=== PATIENT | male | born 1995 | race Caucasian/White ===

== ENCOUNTER 2020-03-04 02:15 | Inpatient (IN) | payer OTHER, SELFPAY ==
[~2020-03-04] VITALS: Ht 177.8 cm; Wt 60.8 kg
[2020-03-04] MEDS ORDERED: ACETAMINOPHEN EXTRA STRENGTH 500 MG TAB PO ONE (02:20)
--- NOTE | 2020-03-04 02:20 | NUR ---
25M PRESENTS TO ED WITH C/O HIGH BLOOD SUGAR. STATES THEY WERE COMING STRAIGHT FROM [facility] AND HAD AN ALTERCATION WITH ONE OF THE NURSES THERE, SO THEY DISCHARGED HIM. PT PRESENTED UPON ARRIVAL VERY LETHARGIC AND WEAK. WHEELCHAIR ASSISTED PT. UPON ASSESSMENT, PT A/O X 4, GCS 15. REPORTS CHILLS AND FEVER. PERRLA. CBL SOUNDS. RR EVEN AND UNLABORED. +SOB BUT DENIES COUGH. ABDOMEN SOFT AND NON TENDER. BOWEL SOUNDS NORMOACTIVE ON ALL QUADRANTS. + N/V. DENIES DIARRHEA AND CONSTIPATION. PT IS AMBULATORY WITH ASSIST DUE TO LETHARGY. OBSERVED RASHES ON THE CHEST WALL. BLOOD SUGAR 411 ON TRIAGE. MACARIO MCCORMACK MADE AWARE OF PT STATUS. PT POSITIONED FOR COMFORT ON WITH HOB ELEVATED. PLACED FOR SAFETY WITH BED LOWEST AND LOCKED, RAILS X 2. PT IS PLACED ON CARDIAC, PULSE OXIMETRY, BP MONITORING. CAME IN WITH 100.3 DEGREE FEVER. PT REPORTS OUTSIDE TRAVEL TO [place] 2 WEEKS AGO AND STAYED FOR 1 WHOLE WEEK THERE. ALLERGIES TO VANCOMYCIN. PT TO BE PLACED TO BED 10 ISOLATION FOR + COVID SCREENING DUE TO FEVER AND OUTSIDE TRAVEL.
--- NOTE | 2020-03-04 02:20 | NUR ---
PT W/C TO BED 11.
[2020-03-04 02:22] VITALS: BP 137/67
--- NOTE | 2020-03-04 02:38 | NUR ---
MACARIO KWAW AT BEDSIDE.
[2020-03-04] MEDS ORDERED: NACL 0.9% 1,000 ML IV ONE ×2 (02:39→05:40)
[2020-03-04] MEDS ORDERED: KCL 20 MEQ/WATER INJ PREMIX 100 ML IV ONE (02:40)
[2020-03-04] MEDS ORDERED: INSULIN REGULAR, HUMAN 100 UNIT in NACL 0.9% 100 ML IV ONE ×2 (02:40)
[2020-03-04 02:56] LABS: BASOPHILS # (AUTO) 0.1 K/uL (0.00-0.22); BASOPHILS % (AUTO) 1.2 % (0.0-2.0); EOSINOPHILS % (AUTO) 0.1 % (0.0-4.0); HEMATOCRIT 35.5 % (36-52); HEMOGLOBIN 11.5 g/dL (12.0-18.0); LYMPHOCYTES # (AUTO) 0.2 K/uL (2.0-11.5); MEAN CORPUSCULAR HEMOGLOBIN 26 pg (27-31); MEAN CORPUSCULAR HGB CONC 33 g/dL (33-37); MEAN CORPUSCULAR VOLUME 80.2 fL (80-94); MONOCYTES # (AUTO) 0.4 K/uL (0.8-1.0); MONOCYTES % (AUTO) 3.7 % (1.7-9.3); NEUTROPHILS # (AUTO) 10.2 K/uL (1.8-7.7); NEUTROPHILS % (AUTO) 93.1 % (42.2-75.2); PLATELET COUNT (AUTO) 345 K/uL (140-450); RED BLOOD CELL COUNT(AUTO) 4.43 MIL/uL (4.20-6.10); RED CELL DISTRIBUTION WIDTH 14.7 % (11.6-13.7)
--- NOTE | 2020-03-04 03:10 | NUR ---
PT REPORTS OF NAUSEA AND VOMITING. HAD X 1 VOMITING EPISODE. MACARIO MCCORMACK MADE AWARE. ADVISED TO MEDICATE WITH ZOFRAN.
[2020-03-04 03:13] LABS: ALBUMIN 3.2 g/dL (3.4-5.0); ANION GAP 32.3 (8-16); ASPARTATE AMINOTRANSFERASE 17 U/L (15-37); CHLORIDE 95 mmol/L (98-107); CREATININE 1.6 mg/dL (0.6-1.3); GFR ARICAN-AMERICAN 68 mL/min (>90); POTASSIUM 4.3 mmol/L (3.5-5.1); SODIUM SERUM 132 mmol/L (136-145); TOTAL BILIRUBIN 0.5 mg/dL (0.0-1.0); UREA NITROGEN, BLOOD 17 mg/dL (7-18)
[2020-03-04] MEDS ORDERED: ONDANSETRON 4 MG/2 ML VIAL IVP ONE (03:15)
[2020-03-04 03:17] LABS: GLUCOSE 461 mg/dL (74-106)
[2020-03-04 03:18] LABS: ACETONE, SERUM MODERATE (NEGATIVE)
[2020-03-04 04:00] LABS: LYMPHOCYTES % (AUTO) 1.9 % (20.5-51.1)
[2020-03-04] MEDS ORDERED: INSU100S22 SUBQ (04:50)
[2020-03-04] MEDS ORDERED: FLUC100T PO (04:50)
[2020-03-04] MEDS ORDERED: HUM SUBQ (04:50)
[2020-03-04] MEDS ORDERED: INSULIN REGULAR, HUMAN 100 UNIT in NACL 0.9% 100 ML IV SCH ×2 (05:35)
[2020-03-04] MEDS ORDERED: ONDANSETRON 4 MG/2 ML VIAL IVP PRN (05:35)
[2020-03-04] MEDS ORDERED: DEXTROSE 50% 50 ML SYR IVP PRN ×2 (05:35)
[2020-03-04] MEDS ORDERED: BLOOD GLUCOSE MONITORING 1 DEV DEV FS SCH (05:35)
[2020-03-04] MEDS ORDERED: ACETAMINOPHEN 325 MG TAB PO PRN (05:35)
[2020-03-04] MEDS ORDERED: LORazepam 2 MG/ML VIAL IVP PRN (05:35)
[2020-03-04] MEDS: BLOOD GLUCOSE MONITORING 1 DEV DEV FS SCH ×18 (05:35→23:35)
[2020-03-04] MEDS: INSULIN REGULAR, HUMAN 100 UNIT in NACL 0.9% 100 ML IV SCH ×12 (06:00→19:45)
--- NOTE | 2020-03-04 06:17 | NUR ---
COVID SWAB COLLECTED, AND TAKEN TO LAB
--- NOTE | 2020-03-04 06:20 | NUR ---
PT VOMITED AROUND 20MLS OF LIGHT BROWN VOMIT.
[2020-03-04 06:55] LABS: APPEARANCE,URINE CLEAR (CLEAR); BILIRUBIN,URINE NEGATIVE (NEGATIVE); BLOOD, URINE TRACE-L (NEGATIVE); COLOR,URINE YELLOW (YELLOW); LEUKOCYTE ESTERASE ,URINE TRACE (NEGATIVE); NITRITE, URINE NEGATIVE (NEGATIVE); PH,URINE 5.5 (5.0-9.0); UGLUCOSE 3+ (NEGATIVE)
--- NOTE | 2020-03-04 07:20 | NUR ---
REPORT RECEIVED FROM JUANIS. PT IS RESTING IN BED, AWAKENS TO VERBAL STIMULI. VISIBLE CHEST RISE AND FALL. BED IN LOWEST POSITION. X2 SIDE RAILS RAISED.
--- NOTE | 2020-03-04 07:40 | NUR ---
PT C/O OF 7/10 PAIN LOCATED AT HEAD/BACK AND STOMACH. DESCRIBES PAIN SHARP AND THROBBING
[2020-03-04] MEDS: MORPHINE SULFATE 4 MG/ML SYR IVP PRN ×2 (07:45→22:59)
--- NOTE | 2020-03-04 08:36 | NUR ---
BS: 329, INSULIN DRIP DECREASED, REFER TO IV SPREADSHEET
[2020-03-04 08:41] LABS: RBC,URINE NONE SEEN /HPF (0-5); WBC,URINE 20-60 /HPF (0-5)
--- NOTE | 2020-03-04 08:52 | NUR ---
PATIENT HAS BEEN SCREENED AND CATEGORIZED HIGH NUTRITION RISK. PATIENT WILL BE SEEN WITHIN 1-2 DAYS OF ADMISSION. 03/04/20-03/05/[address]
--- NOTE | 2020-03-04 09:40 | NUR ---
PT IS RESTING IN BED, NAUSEA IS RELIEVED, PAIN IS RATED 0/10. VSS. ALL NEEDS MET AT THIS TIME
--- NOTE | 2020-03-04 11:00 | NUR ---
PT IS RESTING IN BED, AROUSABLE TO VERBAL STIMULI. VSS. BED IN LOWEST POSITION. ALL NEEDS MET AT THIS TIME.
[2020-03-04] MEDS: DEXT 5% / NACL 0.45% 1,000 ML IV SCH ×2 (11:05→23:37)
--- NOTE | 2020-03-04 12:44 | NUR ---
Kiki ramos in [facility] - 03/04/20 at 1246 by SIOBHAN BS:
--- NOTE | 2020-03-04 12:46 | NUR ---
BS: 182, INSULIN DRIP REDUCED TO 1 UNIT
--- NOTE | 2020-03-04 13:21 | NUR ---
PT IS SITTING UP IN BED, RESP EVEN AND UNLABORED. VSS. PT STATES HE IS FEELING BETTER, NO PAIN AT THE MOMENT. BED IN LOWEST POSITION
--- NOTE | 2020-03-04 13:58 | NUR ---
BS: 196, NO CHANGES MADE TO DRIP AT THIS TIME
--- NOTE | 2020-03-04 14:29 | NUR ---
MD MCCOY REQUESTED TO INCREASE D5 NS0.45% TO 150ML/HR
--- NOTE | 2020-03-04 14:59 | NUR ---
BS: 216, INSULIN DRIP INCREASED TO 2 UNITS
--- NOTE | 2020-03-04 16:02 | NUR ---
BLOOD SUGAR INCREASED TO 222, D5 NS0.45% INFUSION STOPPED AND SWITCHED TO NS.
--- NOTE | 2020-03-04 16:13 | NUR ---
NS RUNNING AT 100ML/ HR
--- NOTE | 2020-03-04 17:16 | NUR ---
BS: 179, INSULIN RUNNING AT 1 UNIT, FLUIDS SWITCHED TO D5 0.45%NS RUNNING AT 150ML. NS FLUIDS DISCONTINUED
--- NOTE | 2020-03-04 18:29 | NUR ---
BS: 173, NO CHANGES MADE AT THIS TIME
--- NOTE | 2020-03-04 18:55 | NUR ---
PT TRANSFERRED FROM ED TO ICU BED 7; PLACED PT ON MONITOR. CHG WIPES DONE; GOWN CHANGED. PT AAOX4; DROWSY, ON INSULIN DRIP AND MAINTENANCE FLUID. 20 G IV TO R FA AND LFA. DENIES N/V/D. DENIES LIGHTHEADEDNESS. SKIN INTACT. BED LOCKED IN LOWEST POSITION. WILL UPDATE ONCOMING RN. WILL CONTINUE TO OBSERVE.
--- NOTE | 2020-03-04 18:59 | NUR ---
Patient will be admitted to care of [facility]. Admited to ICU . Will go to room 7. Belongings list completed. Report to CHE GAUTHIER.
--- NOTE | 2020-03-04 19:30 | NUR ---
ASSUMED CARE OF PT.INITIAL ASSESSMENT COMPLETED.PT AWAKE BUT DROWSY.ABLE TO FOLLOW COMMANDS.SR/ST NOTED ON MONITOR.ON ROOM AIR.NO SOB NOTED.WITH PERIPHERAL IV TO LT F/A G20 INFUSING ORDERED IVF AND RT F/A G20 INTACT INFUSING INSULIN DRIP PER PROTOCOL.NOTED RASHES ON PTS LEFT NECK AREA AND CHEST AREA.PT DID NOT ANSWER WHEN ASKED REGARDING THE RASHES.PT WITH HX OF N/V.DENIES AT THIS TIME.ALSO DENIES PAIN.NURSE UNABLE TO EXAMINE PERINEAL/BACK AREA, PT REFUSING.
[2020-03-04 20:00] VITALS: BP 121/77
--- NOTE | 2020-03-04 21:45 | NUR ---
PT VOIDED USING URINAL.500ML YELLOW URINE.
[2020-03-04 22:00] VITALS: BP 128/85
--- NOTE | 2020-03-04 22:30 | NUR ---
PM CARE REQUESTED BY PT.ORAL CARE DONE.PT STILL ON INSULIN DRIP PER PROTOCOL.TOLERATING ROOM AIR.NO SOB NOTED
--- NOTE | 2020-03-04 22:59 | NUR ---
PT C/O GENERALIZED PAIN 03/07; MORPHINE GIVEN ORDERED
[2020-03-05] VITALS (12 sets, daily range): BP systolic 107–130; BP diastolic 68–83
[2020-03-05] MEDS: BLOOD GLUCOSE MONITORING 1 DEV DEV FS SCH ×15 (00:35→20:47)
--- NOTE | 2020-03-05 01:03 | NUR ---
PT ASLEEP, EASILY AROUSABLE ; STILL ON INSULIN DRIP PER PROTOCOL.NO SOB NOTED.DENIES PAIN WHEN ASKED
[2020-03-05 01:36] LABS: ALBUMIN 2.8 g/dL (3.4-5.0); ANION GAP 15.5 (8-16); CARBON DIOXIDE 20.9 mmol/L (21-32); CREATININE 1.3 mg/dL (0.6-1.3); POTASSIUM 3.4 mmol/L (3.5-5.1); TOTAL BILIRUBIN 0.3 mg/dL (0.0-1.0)
--- NOTE | 2020-03-05 02:54 | NUR ---
PT AWAKE;WANTED TO DRINK WATER; REMINDED PT THAT HE IS NPO AT THIS TIME.NO C/O PAIN MADE
--- NOTE | 2020-03-05 05:35 | NUR ---
pt asleep; easily arousable.no sob noted.continued insulin drip.maintained npo as ordered
[2020-03-05] MEDS: DEXT 5% / NACL 0.45% 1,000 ML IV SCH ×2 (06:50→16:50)
--- NOTE | 2020-03-05 08:00 | NUR ---
PT IN BED SKIN IS VERY WARM TO TOUCH TEMP 102 TYLENOL 65O MG PO GIVEN ,
--- NOTE | 2020-03-05 08:30 | NUR ---
DR. CAVAZOS INFORM ABOUT THE FEVER ORDER BLOOD C/S X2 UA AND CXR.
[2020-03-05 09:29] LABS: BASOPHILS % (AUTO) 0.7 % (0.0-2.0); EOSINOPHILS % (AUTO) 0.6 % (0.0-4.0); HEMATOCRIT 34.4 % (36-52); HEMOGLOBIN 11.6 g/dL (12.0-18.0); LYMPHOCYTES # (AUTO) 0.7 K/uL (2.0-11.5); LYMPHOCYTES % (AUTO) 10.3 % (20.5-51.1); MEAN CORPUSCULAR HEMOGLOBIN 26 pg (27-31); MEAN CORPUSCULAR HGB CONC 34 g/dL (33-37); MEAN CORPUSCULAR VOLUME 78.1 fL (80-94); MONOCYTES # (AUTO) 0.7 K/uL (0.8-1.0); MONOCYTES % (AUTO) 10.9 % (1.7-9.3); NEUTROPHILS # (AUTO) 4.9 K/uL (1.8-7.7); NEUTROPHILS % (AUTO) 77.5 % (42.2-75.2); PLATELET COUNT (AUTO) 297 K/uL (140-450); RED CELL DISTRIBUTION WIDTH 14.5 % (11.6-13.7); WHITE BLOOD COUNT (AUTO) 6.3 K/uL (4.8-10.8)
--- NOTE | 2020-03-05 11:35 | NUR ---
RE CHECK HGT 319 - NO COMPLAIN MADE . WILL INFORM ABOUT LATEST HGT .
--- NOTE | 2020-03-05 11:38 | NUR ---
DISCHARGE PLANNING: THIS IS A 25 Y/O MALE PATIENT FROM HOME, WHO CAME IN DUE TO GENERALIZED WEAKNESS. PAST MEDICAL HISTORY INCLUDE DIABETES. INITIAL DIAGNOSIS OF DKA. CURRENT LABS INCLUDE WBC 6.3, H/H 11.6/34.4, NA/K 135/3.4, BUN/CREA 11/1.3, GLU 229 AND ANION GAP 15.5. ON INSULIN DRIP. ON CEFTRIAXONE AND AZITHROMYCIN. NO CONSULTS AT THIS TIME. DC PLAN BACK TO HOME ONCE STABLE. Addendum: 03/06/20 at 1458 by Jackelyn Dewitt CM SCHEDULED PATIENT A POST DISCHARGE FOLLOW UP APPOINTMENT WITH PCP. APPOINTMENT ON Tuesday AT 8:30AM. [id number] [facility] [employer] [facility] [address] [place] [address] . APPOINTMENT REMINDER WILL BE PLACED IN PATIENTS CHART AND WILL NOTIFY ABRAHAN.
[2020-03-05 11:39] LABS: ALBUMIN 2.8 g/dL (3.4-5.0); ANION GAP 15.6 (8-16); CARBON DIOXIDE 21.3 mmol/L (21-32); CREATININE 1.3 mg/dL (0.6-1.3); TOTAL BILIRUBIN 0.3 mg/dL (0.0-1.0)
[2020-03-05 11:42] LABS: POTASSIUM 2.9 mmol/L (3.5-5.1)
[2020-03-05] MEDS: POTASSIUM CHLORIDE 10 MEQ TABER PO SCH ×2 (12:00→17:13)
--- NOTE | 2020-03-05 12:00 | NUR ---
KCL [address] PO [address] COLE ORDERED.
[2020-03-05] MEDS: AZITHROMYCIN 500 MG in DEXTROSE 5% 250 ML IV SCH (13:00)
--- NOTE | 2020-03-05 13:43 | NUR ---
TRANSFER TO TELE BY MARAH .PT. IS IN STABLE CONDITION DENIED PAIN.
--- NOTE | 2020-03-05 13:43 | NUR ---
03/05/20 RD INITIAL ASSESSMENT COMPLETED PLEASE REFER TO NUTRITION ASSESSMENT UNDER CARE ACTIVITY FOR ESTIMATED NUTRITIONAL NEEDS. 1. CONTINUE NPO MEDICALLY APPROPRIATE 2. CONSIDER ADVANCING DIET TO CCHO 60 GM WHEN MEDICALLY CLEARED 3. RD WILL PROVIDE NUTRITION EDUCATION EDUCATION FOR DIABETES ON FOLLOW UP VISIT 4. RD TO FOLLOW-UP 2-3 DAYS, HIGH RISK MYRNA MILTON, RD
--- NOTE | 2020-03-05 13:45 | NUR ---
DR. COLE IN THE UNIT. DISCUSSED PLAN OF CARE. NOTIFIED OF CLOSED ANION GAP OF 15.5 AND 15.6 RESPECTIVELY. LATEST BS= 174. DR COLE ORDERED TO DC INSULIN DRIP, GIVE LANTUS 25 MG SQ X 1 DOSE AND DOWNGRADE PATIENT TO TELE. ALL ORDERS NOTED AND CARRIED OUT. PATIENT NOTIFIED OF PLAN OF CARE AND VERBALIZED UNDERSTANDING.
[2020-03-05 13:55] LABS: ALBUMIN 2.5 g/dL (3.4-5.0); ANION GAP 12.2 (8-16); CARBON DIOXIDE 23.6 mmol/L (21-32); CREATININE 1.1 mg/dL (0.6-1.3); TOTAL BILIRUBIN 0.2 mg/dL (0.0-1.0)
[2020-03-05] MEDS ORDERED: INSULIN LANTUS 100 UNITS/ML 10 ML VIAL SUBQ SCH (14:00)
--- NOTE | 2020-03-05 14:00 | NUR ---
RECEIVED REPORT FROM ELIZABETH, PATIENT IS ALERT ORIENTED AMBULATORY IN NO ACUTE DISTRESS. PATIENT IS ON RA O2 SAT 95%. TELE MONITOR IN PLACE SR HR=99. ALL BELONGINGS AND CELLPHONE WITH PATIENT. ZITHROMAX ON GOING VIA RFA IV SITE NO SIGN OF INFILTRATION NOTED. PATIENT IS ABLE TO AMBULATE INDEPENDENTLY WITHOUT DIFFICULTY. RE-ORIENTED TO THE ROOM, CALL LIGHT, TV, BATHROOM. WILL ENDORSE TO RECEIVING NURSE
[2020-03-05 14:03] LABS: POTASSIUM 2.8 mmol/L (3.5-5.1)
--- NOTE | 2020-03-05 14:45 | NUR ---
ENDORSED PATIENT TO JOSH RN FOR CONTINUITY OF CARE. ALL QUESTIONS ANSWERED.
--- NOTE | 2020-03-05 14:45 | NUR ---
RECEIVED REPORT FROM TRACTOR ENGINE MECHANICMARAH. PT IS EATING LUNCH IN BED SITTING UP. NO SIGNS OF DISTRESS. VS STABLE. PT HAS A IV IN THE RT FOREARM 20G. PT IS ON A DIABETIC DIET. A&OX4. SKIN IS INTACT. PT IS ON DROPLET PRECAUTIONS.
--- NOTE | 2020-03-05 14:45 | NUR ---
RECEIVED PT FROM ABRAHAN RANDLE, PT IS AWAKE AND WITH AN IV LINE ON THE RT FA G.20 WITH AZITHROMYCIN INFUSING IVPB, ON ROOM AIR, PT DENIES PAIN AND NO SIGN OF DISTRESS NOTED. WILL CONTINUE TO MONITOR PT.
[2020-03-05 16:59] LABS: ALBUMIN 2.5 g/dL (3.4-5.0); ANION GAP 14.9 (8-16); CARBON DIOXIDE 21.6 mmol/L (21-32); CREATININE 1.1 mg/dL (0.6-1.3); POTASSIUM 3.5 mmol/L (3.5-5.1); TOTAL BILIRUBIN 0.3 mg/dL (0.0-1.0)
--- NOTE | 2020-03-05 17:13 | NUR ---
PT WAS GIVEN THE SCHEDULED [id number] K-DUR NOW. TOLERATED AND WILL MONITOR PT.
[2020-03-05] MEDS ORDERED: DEXTROSE 50% 50 ML SYR IVP PRN (17:15)
--- NOTE | 2020-03-05 17:16 | NUR ---
DR. MCCOY CALLED BACK AND WAS ASKED IF PT WILL STILL BE PUT ON EVERY HOUR BLOOD GLUCOSE CHECKING AND MD MADE A TELEPHONE ORDERS TO DISCONTINUE QH BLOOD GLUCOSE CHECK AND INSTEAD ORDERED FOR A LISPRO SLIDING SCALE AND A HGB A1C FOR TOMORROW'S AM LABS, TELEPHONE ORDERS READ BACK AND VERIFIED AND WILL CARRY OUT.
--- NOTE | 2020-03-05 17:30 | NUR ---
PT AMBULATED TO RESTROOM. PT VOIDED. PT RETURNED TO BED. PT IS RESTING IN BED, AWAKE. NO SIGNS OF DISTRESS.
--- NOTE | 2020-03-05 19:31 | NUR ---
TRANSFER OF CARE TO PM RN, MYA. PT IS RESTING IN BED EYES CLOSED. NO SIGNS OF DISTRESS. PT IS RUNNING D5 NS AT 30ML/HR. SKIN IS INTACT. LT IV IS SENSITIVE TO TOUCH, AVOID PASSING MEDICATIONS. MRSA TEST IS PENDING. RECOMMENDATION, CONTINUE MONITORING BLOOD SUGAR.
--- NOTE | 2020-03-05 19:31 | NUR ---
RECEIVED PT AAOX4 , NID - O2 SAT WNL - RA . DENIES ANY PAIN . ON TELE MONITOR . IV SITES INTACT AND PATENT . SAFETY MEASURES IN PLACE . CALL LIGHT WITHIN REACH. PLAN OF CARE DISCUSSED AND VERBALIZE UNDERSTANDING. PER AM SHIFT NURSE THE DOCTOR DISCONTINUED THE INSULIN DRIP. UPON I RECEIVING THE REPORT I FOUND OUT THE PRSENG ON GOING IVF FLUID IS WITH D5 . I ASKED AM NURSE IF THE DOCTOR AWARE THAT THE PESENT ONGOING IVF IS STILL W/ D5 SINCE THE PT'S INSULIN DRIP IS ALREADY DISCONTINUED AND AM NURSE SAID YES THE DOCTOR AWARED ABOUT IT . WILL CONT. TO MONITOR.
--- NOTE | 2020-03-05 19:35 | NUR ---
REFUSE BLOOD DRAW FOR RPT. BMP - WILL INFORM DOCTOR PATIENT RELATIONS MANAGER .
--- NOTE | 2020-03-05 20:00 | NUR ---
MADE ROUNDS . RE CHECK HGT - 406 . STOPPED THE PRESENT IVF D5 0.45 NSS. ACCORDING TO INSULIN SCALE IF THE HGT IS 401 AND ABOVE - CALL MD. WILL GIVE FRESH DRINKING WATER. WILL MONITOR CLOSELY. PT. VOIDED FREELY - 300ML - BP WNL . WILL SEND URINE TO LAB FOR URINE PROFILE ORDERED. WILL PAGE ELECTRICAL AND RADIO AIRCRAFT MECHANIC ABOUT THE [id number] .O2 SAT WNL . Addendum: 03/06/20 at 0756 by Rosie Banerjee RN HOOK NSS RUN FOR 10CC /HR - WILL REFER TO DOCTOR ELECTRICAL AND RADIO AIRCRAFT MECHANIC FOR FURTHER ORDERS .- WILL INFORM CHARGE NURSE .
--- NOTE | 2020-03-05 20:30 | NUR ---
PAGE DR. QUIROZ - ABOUT HGT 406
--- NOTE | 2020-03-05 21:00 | NUR ---
PER SHOCK ABSORPTION FLOOR LAYER - SAID PT REQUESTED HE DOES NOT WANT TO HOOK O2 SAT MONITORING BUT AGREE TO CHECK THE O2 SAT FROM TIME TO TIME . I VERIFIED THIS TO PT AND I CONFIRMED IT . I EXPLAIN THE THE IMPORTANCE OF O2 SAT MONITORING , BUT PT. STILL REFUSE FOR O2 SAT MONITORING , HE SAID HOOK O2 SAT MONITORING LATER HE WANTS TO SLEEP AND REST FOR AWHILE . PT'S NO S/SX OF RESP. DISTRESS NOTED AT THIS TIME . RA.
--- NOTE | 2020-03-05 21:47 | NUR ---
INFORMED CHARGE NURSE ABOUT THE INCIDENT HAPPENNED / CONVERSATION BET. AND DR. COATS . SHE SAID SHE WILL RE PAGE DR. COATS.
--- NOTE | 2020-03-05 22:08 | NUR ---
MY CHARGE NURSE TELLING ME - SHE RE PAGED DR. COATS - BUT NO RESPONSE - WILL REPORT TO NURSE COMPOSITION FLOOR SETTER ABOUT IT .
--- NOTE | 2020-03-05 22:10 | NUR ---
INFORM DIRECTOR STAGE ABOUT THE INCIDENT HAPPENNED AND UNTIL NOW NO REPONSE FROM DR. COATS - SHE SAID CALL THE PRIMARY DOCTOR .
--- NOTE | 2020-03-05 22:13 | NUR ---
NO RTESPONSE FROM DR. COATS - GIVE KASSI 10 'u " PER CHARGE NURSE. WILL RE CHECK HGT AFTER AN HOUR - FOR CLOSELY WATCH . AT THIS TIME PT. IS RESTING ON BED COMFORTABLY NO COMPLAIN MADE . CALL LIGHT WITHIN REACH . Addendum: 03/06/20 at 0059 by Rosie Banerjee RN MARIAA VERIFIED AND CO SIGNED WITH ARMANI , BUT I FOUND OUT I DID NOT SAVE IT TO COMPUTER .
--- NOTE | 2020-03-05 22:45 | NUR ---
DR. COATS CALL BACK - I'M GIVING HIM SHORT BACKGROUND ABOUT THE PT. - I INFORM HIM THE PT'S DIAGNOSIS IS DIABETIC KETOACIDOSIS AND THE LATEST HGT IS 406 . WHILE GIVING REPORT TO HIM DR. ESTRADA BECOME MAD AND HE SAID HOW COME THE PT IS DIABETIC KETOACIDOSIS AND HAS NO INSULIN DRIP . I TRYING TO CONTINUE MY REPORT THAT THE PT TRANSFERRED FROM ICU ,HAD INSULIN DRIP BUT IT WAS DISCONTINUED ORDERED BY THE THE DOCTOR , BUT I DID NOT CONTINUE MY EXPLANATION BECAUSE HE CUT OFF OUR CONVERSATION. - WILL INFORM CHARGE NURSE . Addendum: 03/06/20 at 0039 by Rosie Banerjee RN THE TIME IN THE ABOVE NURSE'S NOTE IS TYPOGRAPHICALLY ERROR - REY Addendum: 03/06/20 at 0042 by Rosie Banerjee RN THE TIME OF THE ABOVE NURSE'S NOTE IS TYPOGRAPHICALLY ERROR , INSTEAD OF 2145- LAWRENCELR
[2020-03-06 01:18] LABS: ALBUMIN 2.6 g/dL (3.4-5.0); ANION GAP 12.8 (8-16); CARBON DIOXIDE 23.7 mmol/L (21-32); CREATININE 1.2 mg/dL (0.6-1.3); POTASSIUM 3.5 mmol/L (3.5-5.1); TOTAL BILIRUBIN 0.2 mg/dL (0.0-1.0)
[2020-03-06 02:50] LABS: APPEARANCE,URINE CLEAR (CLEAR); BILIRUBIN,URINE NEGATIVE (NEGATIVE); BLOOD, URINE TRACE-I (NEGATIVE); COLOR,URINE YELLOW (YELLOW); LEUKOCYTE ESTERASE ,URINE TRACE (NEGATIVE); NITRITE, URINE NEGATIVE (NEGATIVE); UGLUCOSE 3+ (NEGATIVE)
[2020-03-06 03:19] LABS: WBC,URINE 20-60 /HPF (0-5)
--- NOTE | 2020-03-06 04:30 | NUR ---
RE CHECK HGT 132 . NO COMPLAIN MADE - WILL CONT. TO MONITOR.
--- NOTE | 2020-03-06 06:00 | NUR ---
MADE ROUNDS , PT WATCHING TV , NO COMPLAIN MADE , DENIES ANY PAIN , O2 SAT WNL, BP 122/81 - NO MASSIVE U.O NOTED FOR THE WHOLE NIGHT . WILL CONT. TO MONITOR.
[2020-03-06 06:44] LABS: BASOPHILS % (AUTO) 0.7 % (0.0-2.0); HEMATOCRIT 32.7 % (36-52); HEMOGLOBIN 10.9 g/dL (12.0-18.0); LYMPHOCYTES # (AUTO) 0.6 K/uL (2.0-11.5); LYMPHOCYTES % (AUTO) 12.8 % (20.5-51.1); MEAN CORPUSCULAR HEMOGLOBIN 26 pg (27-31); MEAN CORPUSCULAR HGB CONC 33 g/dL (33-37); MEAN CORPUSCULAR VOLUME 77.7 fL (80-94); MONOCYTES # (AUTO) 0.5 K/uL (0.8-1.0); MONOCYTES % (AUTO) 10.9 % (1.7-9.3); NEUTROPHILS # (AUTO) 3.6 K/uL (1.8-7.7); NEUTROPHILS % (AUTO) 74.6 % (42.2-75.2); PLATELET COUNT (AUTO) 272 K/uL (140-450); RED BLOOD CELL COUNT(AUTO) 4.21 MIL/uL (4.20-6.10); RED CELL DISTRIBUTION WIDTH 14.4 % (11.6-13.7); WHITE BLOOD COUNT (AUTO) 4.9 K/uL (4.8-10.8)
--- NOTE | 2020-03-06 07:15 | NUR ---
ENDORSED TO AM SHIFT - I TOLD HER WHAT HAPPENNED ABOUT THE CONVERSATION BET . ME AND DR. ESTRADA . ENDORSE TO HER TO CALL PRIMARY DOCTOR FOR FURTHER ORDERS . PT - STABLE .
--- NOTE | 2020-03-06 07:15 | NUR ---
REPORT GIVEN BY MYA NIGHT NURSE. PATIENT IN STABLE CONDITION. PER NIGHT NURSE PATIENT HAD INCREASED BG, LAST BG 132, SHE WAS UNABLE TO REACH DOCTOR FOR FURTHER ORDERS. WILL FOLLOW UP. PATIENT IS AOX4. NO S/S OF DISTRESS NOTED. CALL LIGHT WITHIN REACH. IV INTACT AND PATENT TO RIGHT FOREARM. PLANS OF CARE DISCUSSED.
[2020-03-06 07:25] LABS: ALBUMIN 2.5 g/dL (3.4-5.0); ANION GAP 12.8 (8-16); CARBON DIOXIDE 22.5 mmol/L (21-32); CREATININE 1.1 mg/dL (0.6-1.3); POTASSIUM 3.3 mmol/L (3.5-5.1); TOTAL BILIRUBIN 0.3 mg/dL (0.0-1.0)
[2020-03-06 08:00] VITALS: BP 128/76
[2020-03-06] MEDS: BLOOD GLUCOSE MONITORING 1 DEV DEV FS SCH ×3 (08:05→16:46)
--- NOTE | 2020-03-06 08:10 | NUR ---
DR. SHAIKH MELO FOR ORDERS.
[2020-03-06] MEDS: DEXT 5% / NACL 0.45% 1,000 ML IV SCH (08:22)
--- NOTE | 2020-03-06 08:29 | NUR ---
DR. CAVAZOS CALLED. OK TO DC D5 NS, KEEP PATIENT ON SALINE LOCK. PER HE WILL COME IN TO SEE PATIENT TODAY.
--- NOTE | 2020-03-06 08:45 | NUR ---
PATIENT REFUSED TO PLACE TELE MONITOR ON. EDUCATED PATIENT ABOUT THE BENEFITS OF TELE MONITOR BEING IN PLACE. PATIENT STILL REFUSED.
--- NOTE | 2020-03-06 10:20 | NUR ---
PATIENT STATED LEFT FOREARM IV IS "HURTING" AND IS "BOTHERING HIM." NO EDEMA OR INFILTRATE NOTED BUT PATIENT OBSERVED TRYING TO REMOVE IV HIMSELF. PATIENT EDUCATED. LEFT FOREARM IV REMOVED, CANNULA INTACT. BLEEDING CONTROLLED. Addendum: 03/06/20 at 1040 by Vale Wong RN PATIENT EDUCATED ABOUT TELE MONITOR, PATIENT REFUSE TO KEEP IN PLACE.
[2020-03-06 11:18] LABS: ALBUMIN 2.6 g/dL (3.4-5.0); ANION GAP 13.4 (8-16); CARBON DIOXIDE 24.1 mmol/L (21-32); CREATININE 1.1 mg/dL (0.6-1.3); POTASSIUM 3.5 mmol/L (3.5-5.1); TOTAL BILIRUBIN 0.3 mg/dL (0.0-1.0)
--- NOTE | 2020-03-06 11:29 | NUR ---
DR. CAVAZOS MADE AWARE OF PATIENT'S BG 453. RECEIVED ORDER TO GIVE LANTUS 25 UNITS NOW THEN DAILY AND HUMALOG 10 UNITS. TO SEE PATIENT.
[2020-03-06] MEDS: INSULIN LISPRO SLIDING SCALE 100 UNITS/ML VIAL SUBQ PRN ×2 (11:44→16:49)
[2020-03-06 12:00] VITALS: BP 118/64
[2020-03-06] MEDS ORDERED: INSULIN LANTUS 100 UNITS/ML 10 ML VIAL SUBQ SCH (12:00)
--- NOTE | 2020-03-06 12:30 | NUR ---
PATIENT EATING LUNCH. NO S/S OF DISTRESS NOTED. CALL LIGHT WITHIN REACH.
[2020-03-06] MEDS: AZITHROMYCIN 500 MG in DEXTROSE 5% 250 ML IV SCH (13:00)
--- NOTE | 2020-03-06 13:45 | NUR ---
RECHECKED BLOOD SUGAR, 383.
[2020-03-06 14:29] LABS: ALBUMIN 2.5 g/dL (3.4-5.0); ANION GAP 14.6 (8-16); CARBON DIOXIDE 23.6 mmol/L (21-32); CREATININE 1.2 mg/dL (0.6-1.3); POTASSIUM 3.2 mmol/L (3.5-5.1); TOTAL BILIRUBIN 0.2 mg/dL (0.0-1.0)
--- NOTE | 2020-03-06 14:55 | NUR ---
DR. CAVAZOS IN UNIT AND AWARE OF CURRENT BMP RESULTS. PER MD HE WILL GET DISCHARGED TODAY.
[2020-03-06 16:00] VITALS: BP 117/77
--- NOTE | 2020-03-06 17:00 | NUR ---
PATIENT IN STABLE CONDITION. DISCHARGE INSTRUCTIONS PROVIDED AND ALL BELONGINGS SIGNED FOR. PATIENT WILL DISCHARGE TO HOME. PATIENT STATED THAT HIS SISTER WILL PICK HIM UP AROUND 6PM.
--- NOTE | 2020-03-06 18:20 | NUR ---
IV REMOVED, CANNULA INTACT. ID BAND REMOVED. PATIENT REMAINS IN STABLE CONDITION. PT AWAITING FOR HIS SISTER FOR BEHAVIORAL SERVICES TECH.
--- NOTE | 2020-03-06 19:36 | NUR ---
PATIENT STATED THAT [facility] WILL PICK HIM UP INSTEAD OF HIS SISTER. ELAINE CHARGE NURSE MADE AWARE.
--- NOTE | 2020-03-06 19:40 | NUR ---
PATIENT BROUGHT VIA W/C TO THE LOBBY TO BE PICKED UP BY [facility]. ALL BELONGINGS GIVEN.
[2020-03-07] MEDS ORDERED: INSULIN LANTUS 100 UNITS/ML 10 ML VIAL SUBQ SCH (09:00)
== END 2020-03-06 19:40 | disposition home or self-care (01) | DRG 420 ==
LOC: MED 02:15 → MTU 05:38 → EEVIPCON 05:38 → MIC 19:29 → MMU 03-05 13:45
PROVIDERS: ADMIT Hospitalist; ATTEND Hospitalist
DX: E10.10 Type 1 diabetes mellitus with ketoacidosis without coma (principal); Z79.4 Long term (current) use of insulin; Z91.19 Patient's noncompliance with other medical treatment and regimen; Z20.828 Contact with and (suspected) exposure to other viral communicable diseases; Z88.1 Allergy status to other antibiotic agents; F32.9 Major depressive disorder, single episode, unspecified
CPT/HCPCS: 36415; 36600; 71045; 80053; 81001; 82009; 82803; 82948; 83036; 85025; 87040; 87081; 87086; 93005; 96365; 96375; 96376; 99291; J0456; J0696; J1815; J2270; J2405; J3480; J7060; Q0092; U0003-CS

== ENCOUNTER 2021-03-03 09:59 | Inpatient (IN) | payer OTHER, SELFPAY ==
[2021-03-03] VITALS (11 sets, daily range): BP systolic 92–126; BP diastolic 45–88
[~2021-03-03] VITALS: Ht 160 cm; Wt 52.2 kg
[~2021-03-03 09:59] MED LIST: FLUC100T PO; HUM SUBQ; INSU100S22 SUBQ
--- NOTE | 2021-03-03 09:59 | NUR ---
Patient wheelchair assisted to bed 9.
--- NOTE | 2021-03-03 10:00 | NUR ---
26 y/o M BIB brother, wheelchair assisted with c/c generalized weakness since this morning. Per brother, patient presented altered this morning at 10AM; stating "he may be in DKA." AccuChek performed reading "HI." GCS 9; Kussmaul respirations @ RR 26; HR 119; blood pressure 92/45; SpO2 98% on room air. Skin cool/dry. Pt placed onto lunchroom monitor. Bed locked in lowest position, side rails x 1, call light in reach. medhx: DM, one lung allergies: vancomycin
--- NOTE | 2021-03-03 10:00 | NUR ---
Dr. Tomas at bedside evaluating patient.
[2021-03-03] MEDS ORDERED: NACL 0.9% 1,000 ML IV ONE ×3 (10:05→13:20)
--- NOTE | 2021-03-03 10:10 | NUR ---
EMT at bedside.
--- NOTE | 2021-03-03 10:22 | NUR ---
RAD AT BEDSIDE
--- NOTE | 2021-03-03 10:40 | NUR ---
# 15 FR Lau catheter utilizing sterile technique. Immediate return of 325 ml clear/straw urine noted. Urine sample collected and sent to lab. Pt tolerated procedure well.
--- NOTE | 2021-03-03 10:41 | NUR ---
SECURITY RESEARCHER AT BEDSIDE FOR LAB DRAW
--- NOTE | 2021-03-03 10:45 | NUR ---
Urine sample collected via straight catheter, handed to CPT Chilo at ER bedside.
[2021-03-03] MEDS ORDERED: SODIUM BICARBONATE 8.4% PFS 50 MEQ/50 ML SYR IVP ONE ×2 (10:48→10:50)
--- NOTE | 2021-03-03 10:50 | NUR ---
Sodium Bicarbonate IVP 50mEq to be given per Dr. Tomas. Orders placed and medication administered.
[2021-03-03 11:05] LABS: HEMOGLOBIN 11.6 g/dL (12.0-18.0)
[2021-03-03 11:05] LABS: APPEARANCE,URINE CLEAR (CLEAR); BILIRUBIN,URINE NEGATIVE (NEGATIVE); BLOOD, URINE 1+ (NEGATIVE); COLOR,URINE YELLOW (YELLOW); LEUKOCYTE ESTERASE ,URINE NEGATIVE (NEGATIVE); NITRITE, URINE NEGATIVE (NEGATIVE); UGLUCOSE 3+ (NEGATIVE)
[2021-03-03 11:12] LABS: HEMATOCRIT 40.2 % (36-52); MEAN CORPUSCULAR HEMOGLOBIN 29 pg (27-31); MEAN CORPUSCULAR HGB CONC 29 g/dL (33-37); PLATELET COUNT (AUTO) 458 K/uL (140-450); RED BLOOD CELL COUNT(AUTO) 4.01 MIL/uL (4.20-6.10); RED CELL DISTRIBUTION WIDTH 14.6 % (11.6-13.7)
[2021-03-03 11:19] LABS: RBC,URINE NONE SEEN /HPF (0-5)
[2021-03-03 11:19] LABS: WHITE BLOOD COUNT (AUTO) 34.1 K/uL (4.8-10.8)
[2021-03-03 11:20] LABS: LYMPHOCYTES % (MANUAL) 11 % (20-46); MONOCYTES % (MANUAL) 4 % (5-12)
[2021-03-03 11:20] LABS: URINE AMORPHOUS URATE 1+ /HPF (None Seen)
[2021-03-03] MEDS ORDERED: PIPERACILLIN/TAZOBACTAM 3.375 GM in DEXTROSE 5% 50 ML IV ONE (11:20)
[2021-03-03 11:25] LABS: BARBITURATE, URINE NEGATIVE ng/ml (NEG <=200); BENZODIAZEPINE, URINE NEGATIVE ng/mL (NEG <=200); CANNABINOID, URINE NEGATIVE ng/mL (NEG <=50); COCAINE, URINE NEGATIVE ng/mL (NEG <=300); OPIATE, URINE NEGATIVE ng/mL (NEG <=2000); PHENCYCLIDINE SCREEN,URINE NEGATIVE ng/mL (NEG <=25)
[2021-03-03] MEDS ORDERED: PIPERACILLIN/TAZOBACTAM 3.375 GM VIAL IV ONE (11:25)
--- NOTE | 2021-03-03 11:30 | NUR ---
Patient resting on right side side in semi-fowlers position; responds with incomprehensible sounds to painful stimuli. Kussmaul respirations @ RR 26 deep/rapid. monitor tech remains in place. Bed locked in lowest position, side rails x 2.
--- NOTE | 2021-03-03 11:35 | NUR ---
Alma colunga swab collected, handed to CPT. Chilo
[2021-03-03 11:42] LABS: ALBUMIN 3.7 g/dL (3.4-5.0); CREATININE 2.5 mg/dL (0.6-1.3); TOTAL BILIRUBIN 0.5 mg/dL (0.0-1.0)
[2021-03-03 11:46] LABS: POTASSIUM 6.7 mmol/L (3.5-5.1)
[2021-03-03 11:47] LABS: CARBON DIOXIDE 6.7 mmol/L (21-32)
[2021-03-03] MEDS ORDERED: INSULIN REGULAR, HUMAN 100 UNIT in NACL 0.9% 100 ML IV ONE ×2 (11:50)
[2021-03-03] MEDS ORDERED: INSULIN REGULAR, HUMAN 100 UNIT/ML VIAL IVP ONE (11:50)
--- NOTE | 2021-03-03 12:05 | NUR ---
AccuChek and lab blood glucose too high to read; "999" numeric inputed for Humulin R IVP. Dr. Tomas made aware; orders to be administered.
[2021-03-03] MEDS ORDERED: INSULIN REGULAR, HUMAN 100 UNIT in NACL 0.9% 100 ML IV SCH ×4 (12:08→15:00)
--- NOTE | 2021-03-03 12:09 | NUR ---
Patient sitting on left side in semi-fowlers position; alert to voice commands at this time. Kussmaul respirations @ RR 26 deep/rapid. nuclear monitoring technician remains in place. Bed locked in lowest position, side rails x 2.
--- NOTE | 2021-03-03 12:20 | NUR ---
Pharmacy contacted to prepare Insulin R drip; no ETA provided.
[2021-03-03] MEDS ORDERED: MAG SULF 2000 MG/WATER PREMIX 50 ML IV PRN (12:35)
[2021-03-03] MEDS ORDERED: ACETAMINOPHEN 325 MG TAB PO PRN (12:35)
[2021-03-03] MEDS ORDERED: DOCUSATE SODIUM 100 MG GELCAP PO PRN (12:35)
[2021-03-03] MEDS ORDERED: INSULIN REGULAR, HUMAN 100 UNIT/ML VIAL SUBQ SCH (12:45)
[2021-03-03] MEDS: BLOOD GLUCOSE MONITORING 1 DEV DEV FS SCH ×12 (12:45→23:43)
[2021-03-03] MEDS ORDERED: CALCIUM GLUCONATE 10% 1,000 MG in NACL 0.9% 50 ML IV SCH (13:00)
--- NOTE | 2021-03-03 13:02 | NUR ---
DR OVIEDO AT BEDSIDE EVAUATING PT
--- NOTE | 2021-03-03 13:16 | NUR ---
REPORT GIVEN TO LATRICIA RN FOR ADMIT TO ICU 106. ETA 15 MINS
[2021-03-03 13:25] LABS: MAGNESIUM 2.8 mg/dL (1.8-2.4); THYROID STIMULATING HORMONE 0.99 uIU/mL (0.34-3.74)
--- NOTE | 2021-03-03 13:30 | NUR ---
Patient will be admitted to care of DR MÓNICA OVIEDO. Admited to ICU. Will go to room 106A. Belongings list completed. Report to LATRICIA GAUTHIER.
[2021-03-03 13:37] LABS: PHOSPHORUS 12.2 mg/dL (2.5-4.9)
--- NOTE | 2021-03-03 13:37 | NUR ---
PT ARRIVED FROM ER IN [facility], REPORT RECEIVED FROM PRINCIPAL LAW CLERK CURTIS, PT DROWSY, ORIENTED X2-3, ABLE TO SAY HIS NAME BIRTHDAY, HOSPITAL, BUT UNABLE TO ANSWER REASONS FOR BEING HERE, RESP EVEN LABORED, RR 30-33, ON [employer], ST, BP 117/58,, IV TO R HAND 20G, R ANKLE 20G, INSULIN INFUSING AT 6UNITS PER HR, NS BOLUS INFUSING, IV SITES WNL, PT ORIENTED TO ROOM AND FLOOR, ALL SAFETY MEASURES IN PLACE, WILL CONTINUE TO [facility]
[2021-03-03] MEDS: NACL 0.9% 1,000 ML IV SCH ×3 (13:54→20:45)
[2021-03-03] MEDS: PANTOPRAZOLE 40 MG INJ VIAL IVP SCH (14:01)
--- NOTE | 2021-03-03 14:20 | NUR ---
REPORT GIVEN TO PRIMARY NURSE BRIAN.
--- NOTE | 2021-03-03 14:25 | NUR ---
RECEIVED REPORT FROM LATRICIA RN FOR CONTINUITY OF CARE.
[2021-03-03 14:34] LABS: ANION GAP 35.7 (8-16); CREATININE 2.4 mg/dL (0.6-1.3); POTASSIUM 5.2 mmol/L (3.5-5.1)
[2021-03-03 15:00] LABS: CARBON DIOXIDE 8.5 mmol/L (21-32)
--- NOTE | 2021-03-03 15:05 | NUR ---
CRITICAL LAB CO2 8.[address] PREET MELO. AWAITING CALL BACK.
[2021-03-03 16:27] LABS: CARBON DIOXIDE 12.6 mmol/L (21-32); CREATININE 2.3 mg/dL (0.6-1.3); POTASSIUM 4.6 mmol/L (3.5-5.1)
--- NOTE | 2021-03-03 16:30 | NUR ---
PICC LINE ORDER REPORTED TO PICC RN, THEY WILL CALL BACK WITH ETA.
[2021-03-03 16:42] LABS: MAGNESIUM 2.5 mg/dL (1.8-2.4); PHOSPHORUS 3.7 mg/dL (2.5-4.9)
--- NOTE | 2021-03-03 17:38 | NUR ---
CHECKED BLOOD SUGAR, 392, INSULIN DRIP INFUSING. PATIENT HAD EPISODE OF BROWN EMESIS. DR. PREET MELO. WILL CONTINUE TO MONITOR.
[2021-03-03] MEDS: PIPERACILLIN/TAZOBACTAM 2.25 GM in DEXTROSE 5% 50 ML IV SCH ×2 (18:00→23:12)
--- NOTE | 2021-03-03 19:11 | NUR ---
TRANSFERRED PATIENT TO ICU.
[2021-03-03] MEDS: ONDANSETRON 4 MG/2 ML VIAL IM/IVP PRN (19:32)
--- NOTE | 2021-03-03 19:32 | NUR ---
PT VOMITED COFFEE GROUND VOMITUS; MODERATE AMT, ZOFRAN ADMINISTERED ORDERED. WILL CONTINUE TO CLOSELY MONITOR PT.
--- NOTE | 2021-03-03 19:40 | NUR ---
ENDORSED CARE TO HUMBLE GAUTHIER, FOR CONTINUITY OF CARE.
--- NOTE | 2021-03-03 19:52 | NUR ---
RECIEVED PT TRANSFER FROM TELE FLOOR TO ICU FROM DAYSHIFT RN, A&0X1, LETHARGIC, GEN BODY PAIN, EMESIS NOTED ON FACE, ST ON MONITOR, KUSSMAUL BREATHING NOTED, ON ROOM AIR, AFEBRILE, SKIN WARM DRY AND INTACT, RH 20 G PIV SALINE LOCKED, RFOOT 20 G PIV INFUSING INSULIN HUMLIN R @ 0.1 UNIT/KG/HR AND NS @ 150MLS/HR, PLAN OF CARE NOTED, SAFETY MEASURES IN PLACE, WILL CONTINUE WITH CURRENT POC
--- NOTE | 2021-03-03 19:52 | NUR ---
BLOOD GLUCOSE 225, INSULIN DRIP REMAINS 0.1 UNIT/KG/HR PER PROTOCOL
[2021-03-03] MEDS: DEXT 5% / NACL 0.45% 1,000 ML IV SCH (20:45)
--- NOTE | 2021-03-03 20:50 | NUR ---
BLOOD GLUCOSE 156, INSULIN HUMULIN R INFUSING @ 0.1UNIT/KG/HR STILL PER PROTOCOL, CHANGED IVF TO D5 HALF NS @ 200MLS/HR TO MAINTAIN BLOOD GLUCOSE BETWEEN 150-200 Addendum: 03/03/21 at 2055 by Inocente Garcia RN CHANGED INSULIN HUMULIN R TO 0.05 UNIT/KG/HR
[2021-03-03 21:04] LABS: MAGNESIUM 2.2 mg/dL (1.8-2.4); PHOSPHORUS 1.5 mg/dL (2.5-4.9)
[2021-03-03 21:24] LABS: ANION GAP 18.1 (8-16); CARBON DIOXIDE 21.6 mmol/L (21-32); CREATININE 1.8 mg/dL (0.6-1.3); POTASSIUM 3.7 mmol/L (3.5-5.1)
--- NOTE | 2021-03-03 21:48 | NUR ---
BLOOD GLUCOSE 164, INSULIN HUMULIN R INFUSING @ 0.05UNITS/KG/HR PER PROTOCOL AND D5 HALF NS @ 200MLS/HR PER PROTOCOL
--- NOTE | 2021-03-03 22:46 | NUR ---
BLOOD GLUCOSE 162, INSULIN HUMULIN R INFUSING @ 0.05UNITS/KG/HR PER PROTOCOL AND D5 HALF NS @ 200MLS/HR PER PROTOCOL
--- NOTE | 2021-03-03 23:12 | NUR ---
ADMINISTERED 0000H ABX NEDICATION PER MD ORDERS
--- NOTE | 2021-03-03 23:13 | NUR ---
PT APPEARS TO BE ASLEEP SR/ST ON MONITOR AND KUSSMAUL BREATHINGS NOTED
--- NOTE | 2021-03-03 23:43 | NUR ---
BLOOD GLUCOSE 170, INSULIN HUMULIN R INFUSING @ 0.05UNITS/KG/HR PER PROTOCOL AND D5 HALF NS @ 200MLS/HR PER PROTOCOL
[2021-03-04] VITALS (24 sets, daily range): BP systolic 101–134; BP diastolic 58–89
[2021-03-04 00:28] LABS: ANION GAP 18.8 (8-16); CARBON DIOXIDE 23.9 mmol/L (21-32); CREATININE 1.7 mg/dL (0.6-1.3); POTASSIUM 3.7 mmol/L (3.5-5.1)
[2021-03-04] MEDS: BLOOD GLUCOSE MONITORING 1 DEV DEV FS SCH ×16 (00:59→21:12)
--- NOTE | 2021-03-04 01:00 | NUR ---
BLOOD GLUCOSE 162, INSULIN HUMULIN R INFUSING @ 0.05UNITS/KG/HR PER PROTOCOL AND D5 HALF NS @ 200MLS/HR PER PROTOCOL
[2021-03-04 01:14] LABS: PHOSPHORUS 2.5 mg/dL (2.5-4.9)
[2021-03-04 01:25] LABS: MAGNESIUM 1.9 mg/dL (1.8-2.4)
--- NOTE | 2021-03-04 01:50 | NUR ---
BLOOD GLUCOSE 162, INSULIN HUMULIN R INFUSING @ 0.05UNITS/KG/HR PER PROTOCOL AND D5 HALF NS @ 200MLS/HR PER PROTOCOL, ADMINISTERED NEW IVF BAG OF D5 HALF NS @ 200MLS/HR
[2021-03-04] MEDS: DEXT 5% / NACL 0.45% 1,000 ML IV SCH ×3 (02:00→13:01)
--- NOTE | 2021-03-04 02:50 | NUR ---
BLOOD GLUCOSE 125
[2021-03-04] MEDS: ONDANSETRON 4 MG/2 ML VIAL IM/IVP PRN (03:36)
--- NOTE | 2021-03-04 03:36 | NUR ---
PT AWAKE; VOMITED SMALL AMT OF COFFEE GROUND VOMITUS; ZOFRAN GIVEN ORDERED. ORAL CARE GIVEN
[2021-03-04 04:11] LABS: BASOPHILS % (AUTO) 0.2 % (0.0-2.0); HEMATOCRIT 32.6 % (36-52); HEMOGLOBIN 11.1 g/dL (12.0-18.0); LYMPHOCYTES % (AUTO) 5.1 % (20.5-51.1); MEAN CORPUSCULAR HEMOGLOBIN 29 pg (27-31); MEAN CORPUSCULAR HGB CONC 34 g/dL (33-37); MEAN CORPUSCULAR VOLUME 83.9 fL (80-94); MONOCYTES # (AUTO) 1.7 K/uL (0.8-1.0); MONOCYTES % (AUTO) 9.2 % (1.7-9.3); NEUTROPHILS # (AUTO) 16.2 K/uL (1.8-7.7); NEUTROPHILS % (AUTO) 85.5 % (42.2-75.2); PLATELET COUNT (AUTO) 329 K/uL (140-450); RED BLOOD CELL COUNT(AUTO) 3.88 MIL/uL (4.20-6.10); RED CELL DISTRIBUTION WIDTH 13.4 % (11.6-13.7)
[2021-03-04 04:20] LABS: ANION GAP 16.4 (8-16); CREATININE 1.6 mg/dL (0.6-1.3); POTASSIUM 3.4 mmol/L (3.5-5.1)
[2021-03-04 04:36] LABS: MAGNESIUM 1.9 mg/dL (1.8-2.4); PHOSPHORUS 2.8 mg/dL (2.5-4.9)
[2021-03-04] MEDS: PIPERACILLIN/TAZOBACTAM 2.25 GM in DEXTROSE 5% 50 ML IV SCH ×3 (05:27→17:30)
--- NOTE | 2021-03-04 05:27 | NUR ---
ADMINISTERED 0600H MEDICATION PER MD ORDERS
--- NOTE | 2021-03-04 06:45 | NUR ---
BLOOG GLUCOSE 93, INCREASED D5 HALF NS TO 250MLS/HR PER PROTOCOL
--- NOTE | 2021-03-04 07:05 | NUR ---
RECEIVED REPORT FROM HUMBLE GAUTHIER FOR CONTINUITY OF CARE. PATIENT IS LETHARGIC, NO SIGNS OF PAIN OR DISTRESS. DRY WEIGHT 60KG[address] ST ON MONITOR. ON RA SATURATING 95%. IVS CLEAN, DRY, AND INTACT, ON RIGHT HAND 20 GAUGE SALINE LOCKED AND RIGHT ANKLE 20 G INFUSING INSULIN INSULIN AT 0.05 UNIT/KG/HR, D5 0.45 NS AT 250 ML/HR, AND NS AT 5ML/HR TKO. NO BM, SMALL EPISODE OF EMESIS LAST NIGHT. OUTPUT 1400. LAST ACCUCHECK 93, ANION GAP 16.4. ON DKA PROTOCOL. SKIN INTACT. DOCUMENTATION LEAD, PULSE OXIMETER, AND SAFETY MEASURES IN PLACE. BED IN LOW POSITION, BED LOCKED. PATIENT IN COMFORTABLE POSITION. VITAL SIGNS STABLE. WILL CONTINUE TO MONITOR.
--- NOTE | 2021-03-04 07:14 | NUR ---
ENDORSED TO DAY SHIFT RN FOR CONTINUITY OF CARE
--- NOTE | 2021-03-04 07:15 | NUR ---
DR. LATASHA MORGAN. UPDATED ON PATIENT STATUS AND CONDITION. AWARE OF LAST ACCUCHECK 93 AND LAST ANION GAP 16.4. WILL CONTINUE TO MONITOR.
[2021-03-04] MEDS: NACL 0.9% 1,000 ML IV SCH ×3 (08:36→22:40)
--- NOTE | 2021-03-04 08:40 | NUR ---
CALLED. ROUNDING ON PATIENT. UPDATED ON PATIENT CONDITION AND STATUS. AWARE ANION GAP AT 16.4. WILL CONTINUE TO MONITOR.
[2021-03-04] MEDS: PANTOPRAZOLE 40 MG INJ VIAL IVP SCH (09:01)
[2021-03-04 09:02] LABS: ANION GAP 12.3 (8-16); CREATININE 1.5 mg/dL (0.6-1.3); POTASSIUM 3.3 mmol/L (3.5-5.1)
--- NOTE | 2021-03-04 09:05 | NUR ---
ADMINISTERED SCHEDULED AM MEDICATIONS. ORAL CARE, HYGIENE CARE AND CHG BATH PROVIDED. CHECKED SUGAR, 89, CONTINUE DKA PROTOCOL. WILL CONTINUE TO MONITOR.
--- NOTE | 2021-03-04 09:12 | NUR ---
PATIENT HAS BEEN SCREENED AND CATEGORIZED HIGH NUTRITION RISK. PATIENT WILL BE SEEN WITHIN 1-2 DAYS OF ADMISSION. 03/04/21-03/05/[address]
[2021-03-04 09:16] LABS: PHOSPHORUS 2.7 mg/dL (2.5-4.9)
--- NOTE | 2021-03-04 10:25 | NUR ---
DR.WERTZ MORGAN. UPDATED ON PATIENT STATUS AND CONDITION. AWARE PATIENT LAST BLOOD SUGAR WAS 89. ORDERS PLACED. WILL CONTINUE TO MONITOR.
--- NOTE | 2021-03-04 12:00 | NUR ---
LAB RESULTED, ANION GAP 10.5. WILL CONTINUE TO MONITOR.
[2021-03-04] MEDS: POTASSIUM CHLORIDE 40 MEQ, LIDOCAINE MPF 1% 25 MG in NACL 0.9% 250 ML IV PRN (13:05)
[2021-03-04 13:07] LABS: ANION GAP 10.5 (8-16); CARBON DIOXIDE 26.4 mmol/L (21-32); CREATININE 1.4 mg/dL (0.6-1.3)
[2021-03-04 13:28] LABS: POTASSIUM 2.9 mmol/L (3.5-5.1)
[2021-03-04 13:34] LABS: MAGNESIUM 2.1 mg/dL (1.8-2.4)
[2021-03-04 13:37] LABS: MAGNESIUM 1.9 mg/dL (1.8-2.4)
--- NOTE | 2021-03-04 14:25 | NUR ---
DR. FARFAN CALLED. UPDATED ON PATIENT STATUS AND CONDITION. AWARE THAT ANION GAPS WERE 12.3 AT 0800 AND 10.5 AT 1200. ORDERS PLACED.
[2021-03-04 15:59] LABS: ANION GAP 13.8 (8-16); CARBON DIOXIDE 21.8 mmol/L (21-32); CREATININE 1.2 mg/dL (0.6-1.3); POTASSIUM 3.6 mmol/L (3.5-5.1)
[2021-03-04 16:00] LABS: MAGNESIUM 1.8 mg/dL (1.8-2.4)
[2021-03-04] MEDS ORDERED: BLOOD GLUCOSE MONITORING 1 DEV DEV FS SCH (16:30)
--- NOTE | 2021-03-04 16:30 | NUR ---
CHECKED PATIENT'S BLOOD SUGAR, 170. WILL CONTINUE TO MONITOR.
[2021-03-04] MEDS ORDERED: DEXTROSE 50% 50 ML SYR IVP PRN (16:45)
--- NOTE | 2021-03-04 17:30 | NUR ---
ADMINISTERED SCHEDULED EVENING MEDS. COVERED BLOOD SUGAR WITH 2 UNITS INSULIN PER MD SLIDING SCALE. PERFORMED HYGIENE CARE AND LINEN CHANGE. WILL CONTINUE TO MONITOR. WILL ENDORSE TO RECORDS ASSOCIATE.
[2021-03-04] MEDS: INSULIN LISPRO SLIDING SCALE 100 UNITS/ML VIAL SUBQ PRN ×2 (17:31→21:14)
[2021-03-04] MEDS: SODIUM PHOS / POTASSIUM PHOS 1 PKT PDR PO PRN (17:32)
--- NOTE | 2021-03-04 19:21 | NUR ---
ENDORSED CARE TO FELICITY GAUTHIER FOR CONTINUITY OF CARE.
--- NOTE | 2021-03-04 19:35 | NUR ---
RECEIVED BEDSIDE REPORT FROM DAYSHIFT NURSE AND CHARGE NURSE. PT AWAKE AND ALERT IN BED. MAKES NEEDS KNOWN. FOLLOWS COMMANDS, PT IS SLIGHTLY WEAK, ALERT TO NAME ONLY. ORIENTED PT TO TIME AND PLACE AND UNIT. ORIENTED PT TO TREATMENT PLAN, VERBALIZES UNDERSTANDING. PT ON ROOM AIR. LUNG SOUNDS CLEAR. ABDOMEN SOFT, FLAT, AND NONTENDER. BOWEL SOUNDS ACTIVE. PT IS CONTINENT, URINAL AT BEDSIDE. RIGHT ANKLE 20G, FLUSHED AND PATENT, IVF IN PLACE. RIGHT HAND 20 G FLUSHED AND SALINE LOCKED. NO SYMPTOMS. SKIN WARM AND DRY, INTACT. AFEBRILE. DENIES PAIN, CALL LIGHT WITHIN REACH, BED LOCKED AND IN LOWEST POSITION, SIDE RAILS UP. WILL CONTINUE TO MONITOR.
--- NOTE | 2021-03-04 20:45 | NUR ---
AT BEDSIDE FOR ASSESSMENT. 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 PT ABLE TO ANSWER MOST QUESTIONS AND CANT REMEMBER SPECIFIC DETAILS ON MEDICAL HISTORY. NEW ORDERS RECEIVED, WILL CARRY OUT.
[2021-03-04] MEDS: INSULIN LANTUS 100 UNITS/ML 10 ML VIAL SUBQ SCH (21:15)
--- NOTE | 2021-03-04 22:10 | NUR ---
PT IS SLEEPING WELL IN BED WITH SIDE RAILS UP. PT ABLE TO SELF TURN. AUDIBLE LOUD KUSSMAUL BREATHING SOUNDS, RT MADE AWARE AND ALERT TO CONDITION. PER RT ANY BREATHING TREATMENT CANNOT ALLEVIATE KUSSMAUL BREATHING SOUNDS. PT SP02 98%. NO TREATMENT/INTERVENTION NEEDED. WILL CONTINUE TO MONITOR.
--- NOTE | 2021-03-04 22:25 | NUR ---
PT's BROTHER CALLED AND UPDATED ON CONDITION. ALL QUESTIONS AND CONCERNS ADDRESSED AND ANSWERED.
--- NOTE | 2021-03-04 22:50 | NUR ---
REPORT GIVEN TO [facility] CHARGE NURSE SIVA. ENDORSED CARE, PT UPDATED ON TREATMENT PLAN. VERBALIZED UNDERSTANDING. ALL NEEDS MET AT THIS TIME. VITAL SIGNS STABLE, ON ROOM AIR.
--- NOTE | 2021-03-04 23:45 | NUR ---
PT TRANSFERRED TO [place] [id number] [address] WITH CHARGE NURSE AND MATERIALS INTERN. CONNECTED TO CONTINUOUS CARDIAC MONITORING. ON ROOM AIR, ALL BELONGINGS WITH PATIENT AND MEDS. SAFETY MEASURES IN PLACE, NO INCIDENT NOTED.
[2021-03-05] VITALS: BP 104/74
[2021-03-05] MEDS: PIPERACILLIN/TAZOBACTAM 2.25 GM in DEXTROSE 5% 50 ML IV SCH ×5 (00:06→23:29)
--- NOTE | 2021-03-05 00:11 | NUR ---
RECEIVED PT FROM ICU IN STABLE CONDITION.IVF OF NS AT 150ML/H INFUSING WELL VIA IV LINE IN RT.FOOT W/O REDNESS OR EDEMA AT SITE.SL ALSO PATENT IN RT.HAND.PT IS AWAKE ,ALERT AND ORIENTED.RESP UNLABORED IN RA.CALL LIGHT WITHIN REACH.WILL CONT.MONITORING.
--- NOTE | 2021-03-05 02:25 | NUR ---
PATIENT ASLEEP AT THIS TIME. VISIBLE CHEST RISE AND FALL NOTED. NOT IN ANY DISTRESS AND NO COMPLAIN AT THIS TIME. CALL LIGHT WITHIN REACH.
[2021-03-05 04:00] VITALS: BP 122/76
--- NOTE | 2021-03-05 04:00 | NUR ---
PATIENT VITAL SIGNS STABLE, AFEBRILE,SATING 99% ON RA. NO COMPLAIN OF PAIN AT THIS TIME. SINUS RHYTHM ON STAGE HAND, HR-97. CALL LIGHT WITHIN REACH.
[2021-03-05] MEDS: NACL 0.9% 1,000 ML IV SCH ×4 (04:36→23:29)
[2021-03-05] MEDS: MORPHINE SULFATE 2 MG/ML SYR IVP PRN ×4 (05:09→20:25)
[2021-03-05] MEDS: BLOOD GLUCOSE MONITORING 1 DEV DEV FS SCH ×4 (05:49→20:21)
[2021-03-05] MEDS: INSULIN LISPRO SLIDING SCALE 100 UNITS/ML VIAL SUBQ PRN ×4 (05:51→20:29)
--- NOTE | 2021-03-05 06:32 | NUR ---
PATIENT STABLE AT THIS TIME. NO ACUTE EVENT THROUGHOUT THE NIGHT. PATIENT IS NOT ON ANY DISTRESS. NO COMPLAIN AT THIS TIME. ALL NEEDS ATTENDED. CALL LIGHT WITHIN REACH. WILL ENDORSE THE PATIENT TO THE ONCOMING RN FOR CONTINUITY OF CARE.
[2021-03-05 06:48] LABS: BASOPHILS % (AUTO) 0.3 % (0.0-2.0); EOSINOPHILS % (AUTO) 0.5 % (0.0-4.0); HEMATOCRIT 29.7 % (36-52); HEMOGLOBIN 10.2 g/dL (12.0-18.0); LYMPHOCYTES % (AUTO) 11.1 % (20.5-51.1); MEAN CORPUSCULAR HEMOGLOBIN 29 pg (27-31); MEAN CORPUSCULAR HGB CONC 34 g/dL (33-37); MEAN CORPUSCULAR VOLUME 84.4 fL (80-94); MONOCYTES # (AUTO) 0.5 K/uL (0.8-1.0); MONOCYTES % (AUTO) 6.2 % (1.7-9.3); NEUTROPHILS % (AUTO) 81.9 % (42.2-75.2); PLATELET COUNT (AUTO) 199 K/uL (140-450); RED BLOOD CELL COUNT(AUTO) 3.52 MIL/uL (4.20-6.10); RED CELL DISTRIBUTION WIDTH 13.4 % (11.6-13.7); WHITE BLOOD COUNT (AUTO) 8.6 K/uL (4.8-10.8)
[2021-03-05 06:57] LABS: ANION GAP 11.6 (8-16); CARBON DIOXIDE 23.9 mmol/L (21-32); CREATININE 1.2 mg/dL (0.6-1.3); POTASSIUM 3.5 mmol/L (3.5-5.1)
--- NOTE | 2021-03-05 07:24 | NUR ---
ENDORSED THE PATIENT TO ABRAHAN CESPEDES FOR CONTINUITY OF CARE. PATIENT STABLE. SIGNING OFF.
[2021-03-05 08:00] VITALS: BP 121/83
[2021-03-05] MEDS: PANTOPRAZOLE 40 MG INJ VIAL IVP SCH (09:03)
[2021-03-05] MEDS: FLUCONAZOLE 100 MG TAB PO SCH (09:22)
--- NOTE | 2021-03-05 09:26 | NUR ---
SCHEDULED MEDICATIONS DUE GIVEN. WILL CONTINUE TO MONITOR.
--- NOTE | 2021-03-05 12:00 | NUR ---
US ON SCROTUM BEING PERFORMED AT BEDSIDE. WILL CONTINUE TO MONITOR.
--- NOTE | 2021-03-05 12:52 | NUR ---
SCHEDULED MEDICATIONS DUE GIVEN. WILL CONTINUE TO MONITOR.
--- NOTE | 2021-03-05 13:18 | NUR ---
PATIENT COMPLAINS OF PAIN. SCHEDULED MEDICATIONS DUE GIVEN. WILL CONTINUE TO MONITOR.
--- NOTE | 2021-03-05 13:37 | NUR ---
03/05/21 RD INITIAL ASSESSMENT COMPLETED PLEASE REFER TO NUTRITION ASSESSMENT UNDER CARE ACTIVITY FOR ESTIMATED NUTRITIONAL NEEDS. 1. CONTINUE [facility] DIET TOLERATED 2. RD PROVIDED DIABETES AND CONSISTENT CARBOHYDRATE NUTRITION EDUCATION. PT ACCEPTED. 3. RD TO FOLLOW-UP 3-5 DAYS, MODERATE RISK MYRNA MILTON RD
--- NOTE | 2021-03-05 15:00 | NUR ---
PATIENT LYING DOWN IN BED SLEEPING, AROUSABLE BY VOICE. NO DISTRESS NOTED. CONDITION UNCHANGED. WILL CONTINUE TO MONITOR.
--- NOTE | 2021-03-05 15:21 | NUR ---
DC PLANNING: SPOKE WITH PATIENT AT BEDSIDE. STATES HE HAS NO PCP AND HASN'T SEEN A PHYSICIAN IN QUITE A WHILE, NON-SPECIFIC. STATES THAT WHEN HE RUNS OUT OF INSULIN HE GOES TO THE LOCAL HOSPITAL AND GETS A PRESCRIPTION. IS OUT OF AREA FOR HIS INSURANCE [employer], CM FOR INSURANCE WILL SPEAK WITH PATIENT ABOUT STATUS. ENCOURAGED PATIENT TO SELECT A PCP AND START REGULAR CARE AND MONITORING FOR HIS DIABETES. NO DME OR PRIOR HOME HEALTH SERVICES, INDEPENDENT WITH ADL'S AND AMBULATION, DENIES SUBSTANCE ABUSE. ENCOURAGED PATIENT TO ALLOW HOME HEALTH NURSE TO DO A SAFETY EVAL, PATIENT STATES HE DOESN'T WANT A STRANGE PERSON IN HIS HOUSE, DECLINED SERVICE. CM WILL CONTINUE TO FOLLOW FOR NEEDS. Addendum: 03/06/21 at 1110 by Barbie Celeste DC PLANNING: CONFIRMED WITH PATIENT THAT HE HAS A GLUCOMETER AND DOES TESTING. INFORMED HIIM THAT [employer] WILL BE CALLING TO SPEAK WITH HIM ABOUT HIS OUT OF AREA STATUS, AND ALSO THAT [facility] WAS ACTIVE A SECONDARY INSURANCE. PATIENT HAD NO QUESTIONS, CM WILL CONTINUE TO FOLLOW FOR NEEDS.
[2021-03-05 16:00] VITALS: BP 122/81
--- NOTE | 2021-03-05 17:05 | NUR ---
SCHEDULED MEDICATIONS DUE GIVEN. WILL CONTINUE TO MONITOR.
--- NOTE | 2021-03-05 19:41 | NUR ---
GAVE REPORT TO CORRESPONDENT NURSE FOR CONTINUITY OF CARE. PATIENT IN STABLE CONDITION.
[2021-03-05 20:00] VITALS: BP 132/81
--- NOTE | 2021-03-05 20:00 | NUR ---
RECEIVED HANDOFF REPORT FROM DAYSHIFT NURSE AT BEDSIDE. PT IS STABLE, ON ROOM AIR, NO SIGNS OF SOB/DISTRESS. CALL LIGHT WITHIN REACH AND SAFETY MEASURES IMPLEMENTED. SCROTAL EDEMA NOTED. PT COMPLAINS OF PAIN ON SCROTUM AT 7/10 PAIN SCALE, CHECKED BASELINE VITALS, WILL MEDICATE FOR PAIN
[2021-03-05] MEDS: INSULIN LANTUS 100 UNITS/ML 10 ML VIAL SUBQ SCH (20:24)
[2021-03-05] MEDS: SODIUM PHOS / POTASSIUM PHOS 1 PKT PDR PO PRN (20:26)
--- NOTE | 2021-03-05 20:35 | NUR ---
SCHEDULED MEDICATIONS GIVEN, PRN PAIN MED ADMINISTERED. PT REPORTS TOLERABLE PAIN AT THIS TIME. SAFETY MEASURES IMPLEMENTED AND CALL LIGHT WITHIN REACH.
--- NOTE | 2021-03-05 23:00 | NUR ---
PATIENT IS ASLEEP, NO SIGNS OF DISTRESS, REPLACED IV FLUIDS
--- NOTE | 2021-03-06 03:00 | NUR ---
PATIENT ASLEEP, NO SIGNS OF DISTRESS, SAFETY MEASURES IMPLEMENTED, AND CALL LIGHT WITHIN REACH.
[2021-03-06 04:00] VITALS: BP 118/72
--- NOTE | 2021-03-06 04:52 | NUR ---
PATIENT DENIES ANY PAIN AT THIS MOMENT, CHECKED VITALS, NO SIGNS OF DISTRESS, SAFETY MEASURES IMPLEMENTED, AND CALL LIGHT WITHIN REACH.
[2021-03-06] MEDS: PIPERACILLIN/TAZOBACTAM 2.25 GM in DEXTROSE 5% 50 ML IV SCH ×4 (05:28→23:53)
[2021-03-06] MEDS: MORPHINE SULFATE 2 MG/ML SYR IVP PRN ×4 (05:28→18:58)
[2021-03-06 06:08] LABS: BASOPHILS % (AUTO) 0.7 % (0.0-2.0); EOSINOPHILS # (AUTO) 0.1 K/uL (0-0.4); EOSINOPHILS % (AUTO) 1.3 % (0.0-4.0); HEMATOCRIT 31.9 % (36-52); HEMOGLOBIN 10.9 g/dL (12.0-18.0); LYMPHOCYTES # (AUTO) 1.1 K/uL (2.0-11.5); LYMPHOCYTES % (AUTO) 18.1 % (20.5-51.1); MEAN CORPUSCULAR HEMOGLOBIN 29 pg (27-31); MEAN CORPUSCULAR HGB CONC 34 g/dL (33-37); MONOCYTES # (AUTO) 0.5 K/uL (0.8-1.0); MONOCYTES % (AUTO) 9.1 % (1.7-9.3); NEUTROPHILS # (AUTO) 4.2 K/uL (1.8-7.7); NEUTROPHILS % (AUTO) 70.8 % (42.2-75.2); PLATELET COUNT (AUTO) 214 K/uL (140-450); RED BLOOD CELL COUNT(AUTO) 3.76 MIL/uL (4.20-6.10); WHITE BLOOD COUNT (AUTO) 5.9 K/uL (4.8-10.8)
[2021-03-06 06:21] LABS: ANION GAP 14.7 (8-16); CARBON DIOXIDE 26.6 mmol/L (21-32); CREATININE 0.9 mg/dL (0.6-1.3); POTASSIUM 3.3 mmol/L (3.5-5.1)
[2021-03-06] MEDS: INSULIN LISPRO SLIDING SCALE 100 UNITS/ML VIAL SUBQ PRN ×4 (06:49→21:14)
[2021-03-06] MEDS: BLOOD GLUCOSE MONITORING 1 DEV DEV FS SCH ×4 (06:50→21:03)
--- NOTE | 2021-03-06 07:10 | NUR ---
RECEIVED REPORT FROM TIRE ROOM SUPERVISOR NURSE FOR CONTINUITY OF CARE. PATIENT AWAKE AND ALERT SITTING UP IN BED. BREATHING EVEN AN UNLABORED. ALL SAFETY MEASURES IN PLACE WILL CONTINUE TO MONITOR.
--- NOTE | 2021-03-06 07:35 | NUR ---
PATIENT REPORT GIVEN TO AM NURSE, PT ENDORSED IN STABLE CONDITION
--- NOTE | 2021-03-06 08:53 | NUR ---
PATIENT IN BED. BREATHING IS EVEN AN UNLABORED. ALL SAFETY MEASURES IN PLACE. WILL CONTINUE TO MONITOR.
--- NOTE | 2021-03-06 09:30 | NUR ---
PATIENT AWAKE IN BED. BREATHING IS EVEN AN UNLABORED. ROUTINE MEDICATION GIVEN. ALL SAFETY MEASURES IN PLACE. WILL CONTINUE TO MONITOR.
[2021-03-06] MEDS: PANTOPRAZOLE 40 MG INJ VIAL IVP SCH (09:34)
[2021-03-06] MEDS: FLUCONAZOLE 100 MG TAB PO SCH (09:34)
--- NOTE | 2021-03-06 11:50 | NUR ---
PATIENT TAKEN FOR CT OF CHEST, ABDOMEN,AND PELVIS WITH AND WITHOUT CONTRAST. ALL CONSENTS SIGNED.
--- NOTE | 2021-03-06 12:30 | NUR ---
PATIENT IN BED. NO ACUTE DISTRESS NOTED. ALL SAFETY MEASURES IN PLACE WILL CONTINUE TO MONITOR.
[2021-03-06 13:42] LABS: MAGNESIUM 1.6 mg/dL (1.8-2.4); PHOSPHORUS 2.5 mg/dL (2.5-4.9)
--- NOTE | 2021-03-06 14:52 | NUR ---
PATIENT ALERT AND WAKE. BREATHING IS EVEN AND UNLABORED. ALL SAFETY MEASURES IN PLACE WILL CONTINUE TO MONITOR.
[2021-03-06 16:00] VITALS: BP 132/83
--- NOTE | 2021-03-06 16:28 | NUR ---
PATIENT IN BED WATCHING TV. NO ACUTE DISTRESS NOTED. ALL SAFETY MEASURES IN PLACE. WILL CONTINUE TO MONITOR.
[2021-03-06] MEDS: NACL 0.9% 1,000 ML IV SCH (17:16)
--- NOTE | 2021-03-06 19:10 | NUR ---
ENDORSED TO RIDE ASSEMBLY SUPERVISOR NURSE OF CONTINUITY OF CARE. PATIENT STABLE.
[2021-03-06 20:21] VITALS: BP 120/60
[2021-03-06] MEDS ORDERED: INSULIN LANTUS 100 UNITS/ML 10 ML VIAL SUBQ SCH (21:00)
[2021-03-07 00:21] VITALS: BP 123/70
[2021-03-07 04:00] VITALS: BP 128/59
[2021-03-07] MEDS: MORPHINE SULFATE 2 MG/ML SYR IVP PRN ×4 (05:48→20:29)
[2021-03-07] MEDS: PIPERACILLIN/TAZOBACTAM 2.25 GM in DEXTROSE 5% 50 ML IV SCH ×3 (05:51→18:13)
--- NOTE | 2021-03-07 06:36 | NUR ---
pt asked for pain medication of his legs with good effect blood sugar 215 i will cover with insulin , pt spent a restfull day vss
[2021-03-07 07:22] LABS: BASOPHILS % (AUTO) 0.4 % (0.0-2.0); EOSINOPHILS # (AUTO) 0.1 K/uL (0-0.4); EOSINOPHILS % (AUTO) 2.2 % (0.0-4.0); HEMATOCRIT 31.1 % (36-52); HEMOGLOBIN 10.8 g/dL (12.0-18.0); LYMPHOCYTES # (AUTO) 0.8 K/uL (2.0-11.5); LYMPHOCYTES % (AUTO) 13.9 % (20.5-51.1); MEAN CORPUSCULAR HEMOGLOBIN 29 pg (27-31); MEAN CORPUSCULAR HGB CONC 35 g/dL (33-37); MEAN CORPUSCULAR VOLUME 83.3 fL (80-94); MONOCYTES # (AUTO) 0.6 K/uL (0.8-1.0); MONOCYTES % (AUTO) 10.3 % (1.7-9.3); NEUTROPHILS # (AUTO) 4.2 K/uL (1.8-7.7); NEUTROPHILS % (AUTO) 73.2 % (42.2-75.2); PLATELET COUNT (AUTO) 221 K/uL (140-450); RED BLOOD CELL COUNT(AUTO) 3.73 MIL/uL (4.20-6.10); RED CELL DISTRIBUTION WIDTH 13.2 % (11.6-13.7); WHITE BLOOD COUNT (AUTO) 5.7 K/uL (4.8-10.8)
--- NOTE | 2021-03-07 07:30 | NUR ---
RECEIVED REPORT FROM GIMP BUTTONHOLE MACHINE OPERATOR NURSE FOR CONTINUITY OF CARE. PATIENT AWAKE AND ALERT SITTING UP IN BED. RESPIRATIONS EVEN AND UNLABORED. ON ROOM AIR AND NO DISTRESS NOTED. SKIN IS WARM AND DRY. IV SITE ON RIGHT ANKLE 22G AND LFA 22G. BOTH INTACT AND PATENT. INFUSING FLUIDS WELL ON LFA. DENIES PAIN AT THE MOMENT. PLAN OF CARE DISCUSSED. ALL SAFETY MEASURES IN PLACE. CALL LIGHT WITHIN REACH. WILL CONTINUE TO MONITOR.
[2021-03-07 07:34] LABS: MAGNESIUM 1.7 mg/dL (1.8-2.4); PHOSPHORUS 3.4 mg/dL (2.5-4.9)
[2021-03-07 07:40] LABS: ANION GAP 9.7 (8-16); CARBON DIOXIDE 28.8 mmol/L (21-32); CREATININE 0.8 mg/dL (0.6-1.3); POTASSIUM 3.5 mmol/L (3.5-5.1)
[2021-03-07 08:00] VITALS: BP 133/85
[2021-03-07] MEDS: INSULIN LISPRO SLIDING SCALE 100 UNITS/ML VIAL SUBQ PRN ×4 (08:01→22:32)
[2021-03-07] MEDS: NACL 0.9% 1,000 ML IV SCH ×3 (08:04→20:29)
[2021-03-07] MEDS: BLOOD GLUCOSE MONITORING 1 DEV DEV FS SCH ×4 (08:04→22:14)
[2021-03-07] MEDS: FLUCONAZOLE 100 MG TAB PO SCH (08:44)
[2021-03-07] MEDS: PANTOPRAZOLE 40 MG INJ VIAL IVP SCH (08:44)
--- NOTE | 2021-03-07 09:00 | NUR ---
ALL SCHEDULED MEDS GIVEN. PT IS STABLE. NO DISTRESS NOTED. WILL CONTINUE MONITOR.
--- NOTE | 2021-03-07 10:51 | NUR ---
PATIENT COMPLAINED OF RIGHT TESTICLE PAIN 8/. ADMINISTERED PRN PAIN MEDICATION PER MD ORDERED.
--- NOTE | 2021-03-07 12:20 | NUR ---
CHECKED ON PATIENT. PATIENT IS STABLE. NO DISTRESS NOTED. WILL CONTINUE TO MONITOR.
--- NOTE | 2021-03-07 15:09 | NUR ---
PT COMPLAINS OF 8/10 TESTICLE PAIN. ADMINISTERED MORPHINE PER MD ORDER.
[2021-03-07 16:00] VITALS: BP 135/82
--- NOTE | 2021-03-07 20:00 | NUR ---
RECEIVED PATIENT AWAKE AND ALERT IN BED. PT ON ROOM AIR. NO SOB OR S/S OF DISTRESS. BED LOWERED WITH CALL LIGHT WITHIN REACH. WILL CONTINUE TO MONITOR
[2021-03-07 20:32] VITALS: BP 116/77
[2021-03-07] MEDS ORDERED: AZITHROMYCIN 250 MG TAB PO SCH (20:40)
--- NOTE | 2021-03-07 21:00 | NUR ---
PATIENT SEEN BY DR VALENZUELA
[2021-03-07] MEDS ORDERED: cefTRIAXone 250 MG VIAL ONE ×2 (21:51)
[2021-03-07] MEDS ORDERED: WATER STERILE 10 ML MC ONE (22:01)
[2021-03-07] MEDS: levoFLOXacin 750 MG TAB PO SCH (22:13)
--- NOTE | 2021-03-07 22:13 | NUR ---
ADMINISTERED SCHEDULED MEDS. PT TOLERATED WELL
[2021-03-07] MEDS: INSULIN LANTUS 100 UNITS/ML 10 ML VIAL SUBQ SCH (22:31)
[2021-03-08] MEDS: MORPHINE SULFATE 2 MG/ML SYR IVP PRN ×3 (02:38→17:26)
[2021-03-08 04:55] VITALS: BP 119/82
[2021-03-08] MEDS: BLOOD GLUCOSE MONITORING 1 DEV DEV FS SCH ×4 (06:56→21:35)
[2021-03-08 07:07] LABS: BASOPHILS % (AUTO) 0.7 % (0.0-2.0); EOSINOPHILS # (AUTO) 0.1 K/uL (0-0.4); EOSINOPHILS % (AUTO) 2.5 % (0.0-4.0); HEMATOCRIT 32.2 % (36-52); HEMOGLOBIN 10.9 g/dL (12.0-18.0); LYMPHOCYTES # (AUTO) 0.9 K/uL (2.0-11.5); LYMPHOCYTES % (AUTO) 16.5 % (20.5-51.1); MEAN CORPUSCULAR HEMOGLOBIN 29 pg (27-31); MEAN CORPUSCULAR HGB CONC 34 g/dL (33-37); MEAN CORPUSCULAR VOLUME 84.7 fL (80-94); MONOCYTES # (AUTO) 0.7 K/uL (0.8-1.0); MONOCYTES % (AUTO) 12.9 % (1.7-9.3); NEUTROPHILS # (AUTO) 3.8 K/uL (1.8-7.7); NEUTROPHILS % (AUTO) 67.4 % (42.2-75.2); PLATELET COUNT (AUTO) 277 K/uL (140-450); RED CELL DISTRIBUTION WIDTH 13.2 % (11.6-13.7); WHITE BLOOD COUNT (AUTO) 5.6 K/uL (4.8-10.8)
--- NOTE | 2021-03-08 07:24 | NUR ---
PT REPORT GIVEN TO AM NURSE. PT ENDORSED IN STABLE CONDITION
--- NOTE | 2021-03-08 07:26 | NUR ---
RECEIVED REPORT FROM CRYSTAL MACHINING COORDINATOR NURSE FOR CONTINUITY OF CARE. PATIENT AWAKE AND ALERT SITTING UP IN BED. RESPIRATIONS EVEN AND UNLABORED. ON ROOM AIR AND NO DISTRESS NOTED. SKIN IS WARM AND DRY. IV SITE ON RIGHT ANKLE 22G AND LFA 22G. BOTH INTACT AND PATENT. INFUSING FLUIDS WELL ON LFA. DENIES PAIN AT THE MOMENT. PLAN OF CARE DISCUSSED. ALL SAFETY MEASURES IN PLACE. CALL LIGHT WITHIN REACH. WILL CONTINUE TO MONITOR.
[2021-03-08 07:28] LABS: ANION GAP 11.1 (8-16); CARBON DIOXIDE 30.1 mmol/L (21-32); CREATININE 0.7 mg/dL (0.6-1.3); MAGNESIUM 1.7 mg/dL (1.8-2.4); PHOSPHORUS 3.7 mg/dL (2.5-4.9); POTASSIUM 3.2 mmol/L (3.5-5.1)
[2021-03-08 08:00] VITALS: BP 114/74
[2021-03-08] MEDS: PANTOPRAZOLE 40 MG INJ VIAL IVP SCH (08:30)
[2021-03-08] MEDS: FLUCONAZOLE 100 MG TAB PO SCH (08:32)
--- NOTE | 2021-03-08 08:39 | NUR ---
PATIENT COMPLAINED OF RIGHT TESTICLE PAIN 8/. ADMINISTERED PRN PAIN MEDICATION PER MD ORDERED.
[2021-03-08] MEDS: NACL 0.9% 1,000 ML IV SCH ×2 (09:04→19:16)
[2021-03-08] MEDS: MAGNESIUM OXIDE 400 MG TAB PO SCH (10:10)
[2021-03-08] MEDS: POTASSIUM CHLORIDE 40 MEQ, LIDOCAINE MPF 1% 25 MG in NACL 0.9% 250 ML IV PRN (10:18)
[2021-03-08] MEDS: INSULIN LISPRO SLIDING SCALE 100 UNITS/ML VIAL SUBQ PRN ×2 (12:06→17:30)
--- NOTE | 2021-03-08 12:06 | NUR ---
BLOOD GLUCOSE CHECK IS 378. INSULIN COVERAGE NEEDED. ADMINISTERED 10 UNITS OF INSULIN SQ PER MD ORDERED.
[2021-03-08 12:48] LABS: RAPID PLASMA REAGIN NON-REACTIVE (Non Reactiv)
--- NOTE | 2021-03-08 13:55 | NUR ---
CHECKED ON PT. PT IS ASLEEP. NOTED CHEST RISE AND FALL. NO DISTRESS NOTED. WILL CONTINUE TO MONITOR.
--- NOTE | 2021-03-08 15:00 | NUR ---
CHECKED ON PATIENT. PATIENT IS ASLEEP. NOTED CHEST RISE AND FALL. NO S/S OF DISTRESS NOTED. WILL CONTINUE TO MONITOR.
[2021-03-08 16:00] VITALS: BP 132/76
--- NOTE | 2021-03-08 17:26 | NUR ---
PATIENT COMPLAINED OF RIGHT TESTICLE PAIN 8/. ADMINISTERED PRN PAIN MEDICATION PER MD ORDERED.
--- NOTE | 2021-03-08 17:31 | NUR ---
BLOOD GLUCOSE CHECK IS 206. INSULIN COVERAGE NEEDED. ADMINISTERED INSULIN SQ PER MD ORDERED.
--- NOTE | 2021-03-08 19:34 | NUR ---
RECEIVED REPORT FROM AM RN. PATIENT IS LYING IN BED IN NO ACUTE DISTRESS. IVF NS INFUSING AT 100 ML/HR ON THE LFA. AFEBRILE. SKIN WARM AND DRY TO TOUCH. CALL LIGHT WITHIN REACH. DENIES PAIN. SAFETY MEASURES IN PLACE.
--- NOTE | 2021-03-08 19:34 | NUR ---
ENDORSED BEDSIDE REPORT TO [employer] NURSE FOR CONTINUITY OF CARE. PT IS STABLE.
[2021-03-08 20:00] VITALS: BP 120/75
[2021-03-08] MEDS: INSULIN LANTUS 100 UNITS/ML 10 ML VIAL SUBQ SCH (21:23)
[2021-03-08] MEDS: levoFLOXacin 750 MG TAB PO SCH (21:28)
--- NOTE | 2021-03-08 21:28 | NUR ---
SCHEDULED MEDS GIVEN ORDERED.
[2021-03-09] MEDS: NACL 0.9% 1,000 ML IV SCH ×2 (00:43→05:16)
[2021-03-09] MEDS: MORPHINE SULFATE 2 MG/ML SYR IVP PRN ×4 (02:30→16:24)
[2021-03-09 07:07] LABS: MAGNESIUM 1.9 mg/dL (1.8-2.4); PHOSPHORUS 4.1 mg/dL (2.5-4.9)
--- NOTE | 2021-03-09 07:28 | NUR ---
ENDORSED TO AM NURSE FOR CONTINUITY OF CARE. PT IS STABLE
[2021-03-09] MEDS: BLOOD GLUCOSE MONITORING 1 DEV DEV FS SCH ×3 (07:58→16:30)
[2021-03-09] MEDS: PANTOPRAZOLE 40 MG INJ VIAL IVP SCH (08:17)
[2021-03-09] MEDS: MAGNESIUM OXIDE 400 MG TAB PO SCH (08:19)
[2021-03-09] MEDS: FLUCONAZOLE 100 MG TAB PO SCH (08:19)
[2021-03-09] MEDS ORDERED: LANTUS SUBQ (08:30)
[2021-03-09] MEDS ORDERED: IBUP-1842 PO (08:30)
[2021-03-09] MEDS ORDERED: LEVO750T51 PO (08:30)
[2021-03-09] MEDS ORDERED: FLUC100T1 PO (08:30)
[2021-03-09 08:34] LABS: BASOPHILS % (AUTO) 0.7 % (0.0-2.0); EOSINOPHILS # (AUTO) 0.2 K/uL (0-0.4); HEMATOCRIT 31.8 % (36-52); HEMOGLOBIN 10.8 g/dL (12.0-18.0); LYMPHOCYTES # (AUTO) 1.1 K/uL (2.0-11.5); LYMPHOCYTES % (AUTO) 21.3 % (20.5-51.1); MEAN CORPUSCULAR HEMOGLOBIN 29 pg (27-31); MEAN CORPUSCULAR HGB CONC 34 g/dL (33-37); MEAN CORPUSCULAR VOLUME 85.1 fL (80-94); MONOCYTES # (AUTO) 0.7 K/uL (0.8-1.0); MONOCYTES % (AUTO) 13.4 % (1.7-9.3); NEUTROPHILS # (AUTO) 3.3 K/uL (1.8-7.7); NEUTROPHILS % (AUTO) 61.6 % (42.2-75.2); PLATELET COUNT (AUTO) 356 K/uL (140-450); RED BLOOD CELL COUNT(AUTO) 3.74 MIL/uL (4.20-6.10); RED CELL DISTRIBUTION WIDTH 13.3 % (11.6-13.7); WHITE BLOOD COUNT (AUTO) 5.4 K/uL (4.8-10.8)
[2021-03-09 08:54] LABS: ANION GAP 13.2 (8-16); CARBON DIOXIDE 26.5 mmol/L (21-32); CREATININE 0.9 mg/dL (0.6-1.3); POTASSIUM 3.7 mmol/L (3.5-5.1)
[2021-03-09 10:22] VITALS: BP 122/81
[2021-03-09] MEDS: INSULIN LISPRO SLIDING SCALE 100 UNITS/ML VIAL SUBQ PRN (12:46)
--- NOTE | 2021-03-09 14:50 | NUR ---
alert, oriented, c/o pain on scrotum, the site tender to touch. Asked for Morphine 4mg ivp given at the beginning of shfit 1230, another morphine 4mg ivp given, same problem. Seen by attending, order to discharge patient to home. Got to get in touch with brother whether ride is available.
[2021-03-09 15:53] VITALS: BP 122/81
--- NOTE | 2021-03-09 16:31 | NUR ---
finally patient's brother called, and will bulk picker the patient at 1700. Requested the last dose of morphine, 2mg ivp given now while awaiting the ride. HL x2 out, removed arm bands, ready to go home, alert, oriented and in no distress. reminds the patient of picking up the meds on the way home 1/ Lantus 2/Antibiotic Levaquin 3/ Pain meds, Motrin. patient is discharged to home
[2021-03-09 16:39] VITALS: BP 116/72
== END 2021-03-09 17:45 | disposition home or self-care (01) | DRG 720 ==
LOC: MED 09:59 → MTU 12:34 → EEVIPCON 12:34 → MIC 19:12 → MTU 03-04 23:56
PROVIDERS: ADMIT Hospitalist; ATTEND Hospitalist
DX: A41.9 Sepsis, unspecified organism (principal); N17.0 Acute kidney failure with tubular necrosis; J96.01 Acute respiratory failure with hypoxia; R65.21 Severe sepsis with septic shock; E10.10 Type 1 diabetes mellitus with ketoacidosis without coma; G93.41 Metabolic encephalopathy; J18.9 Pneumonia, unspecified organism; N18.31 Chronic kidney disease, stage 3a; B38.7 Disseminated coccidioidomycosis; E86.0 Dehydration; E87.0 Hyperosmolality and hypernatremia; E87.5 Hyperkalemia; E87.8 Other disorders of electrolyte and fluid balance, not elsewhere classified; N45.2 Orchitis; D53.9 Nutritional anemia, unspecified; E87.6 Hypokalemia; E10.22 Type 1 diabetes mellitus with diabetic chronic kidney disease; E83.39 Other disorders of phosphorus metabolism; E83.41 Hypermagnesemia; Z20.822 Contact with and (suspected) exposure to COVID-19; E83.51 Hypocalcemia; Z82.49 Family history of ischemic heart disease and other diseases of the circulatory system; Z83.3 Family history of diabetes mellitus; Z88.1 Allergy status to other antibiotic agents; Z91.14 Patient's other noncompliance with medication regimen; Z91.19 Patient's noncompliance with other medical treatment and regimen; Z79.4 Long term (current) use of insulin
CPT/HCPCS: 36415; 51702; 71045; 71270; 76870; 80048; 80053; 80305; 81001; 82009; 82105; 82803; 82948; 83036; 83605; 83615; 83690; 83735; 84100; 84443; 84484; 85025; 86592; 87040; 87081; 87086; 87491; 93005; 96361; 96365; 96375; 99291; C9113; J0610; J0696; J1815; J2001; J2270; J2405; J2543; J3480; J7030; J7060; Q9967

== ENCOUNTER 2021-07-20 06:40 | Emergency (ER) | payer MEDICAID, OTHER, SELFPAY ==
[~2021-07-20] VITALS: Ht 180.3 cm; Wt 54.5 kg
[~2021-07-20 06:40] MED LIST changes: -FLUC100T PO; +FLUC100T1 PO; -HUM SUBQ; +IBUP-1842 PO; -INSU100S22 SUBQ; +LANTUS SUBQ; +LEVO750T51 PO
[2021-07-20 06:59] VITALS: BP 150/83
--- NOTE | 2021-07-20 07:10 | NUR ---
PT TAKEN TO BED 11. AMBULATORY W STEADY GAIT.
[2021-07-20] MEDS ORDERED: NACL 0.9% 1,000 ML IV ONE ×2 (07:15→08:30)
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
[2021-07-20] MEDS ORDERED: KETOROLAC 15 MG/ML VIAL IVP ONE (07:45)
--- NOTE | 2021-07-20 07:58 | NUR ---
X-Ray at bedside.
--- NOTE | 2021-07-20 08:16 | NUR ---
URINE COLLECTED AND SENT TO LAB
[2021-07-20 08:22] LABS: APPEARANCE,URINE CLEAR (CLEAR); BILIRUBIN,URINE NEGATIVE (NEGATIVE); BLOOD, URINE TRACE-I (NEGATIVE); COLOR,URINE YELLOW (YELLOW); LEUKOCYTE ESTERASE ,URINE NEGATIVE (NEGATIVE); NITRITE, URINE NEGATIVE (NEGATIVE); UGLUCOSE 3+ (NEGATIVE)
[2021-07-20 08:26] LABS: BASOPHILS # (AUTO) 0.1 K/uL (0.00-0.22); BASOPHILS % (AUTO) 1.1 % (0.0-2.0); EOSINOPHILS # (AUTO) 0.1 K/uL (0-0.4); EOSINOPHILS % (AUTO) 1.9 % (0.0-4.0); HEMATOCRIT 36.1 % (36-52); HEMOGLOBIN 12.1 g/dL (12.0-18.0); LYMPHOCYTES # (AUTO) 1.1 K/uL (2.0-11.5); LYMPHOCYTES % (AUTO) 17.6 % (20.5-51.1); MEAN CORPUSCULAR HEMOGLOBIN 28 pg (27-31); MEAN CORPUSCULAR HGB CONC 34 g/dL (33-37); MEAN CORPUSCULAR VOLUME 82.4 fL (80-94); MONOCYTES # (AUTO) 0.4 K/uL (0.8-1.0); MONOCYTES % (AUTO) 6.3 % (1.7-9.3); NEUTROPHILS # (AUTO) 4.6 K/uL (1.8-7.7); NEUTROPHILS % (AUTO) 73.1 % (42.2-75.2); PLATELET COUNT (AUTO) 308 K/uL (140-450); RED BLOOD CELL COUNT(AUTO) 4.38 MIL/uL (4.20-6.10); RED CELL DISTRIBUTION WIDTH 14.7 % (11.6-13.7); WHITE BLOOD COUNT (AUTO) 6.3 K/uL (4.8-10.8)
[2021-07-20 08:29] LABS: ALBUMIN 3.5 g/dL (3.4-5.0); ANION GAP 13.9 (8-16); CREATININE 1.2 mg/dL (0.6-1.3); POTASSIUM 3.9 mmol/L (3.5-5.1); TOTAL BILIRUBIN 0.2 mg/dL (0.0-1.0)
[2021-07-20] MEDS ORDERED: INSULIN LANTUS 100 UNITS/ML 10 ML VIAL SUBQ SCH (08:55)
[2021-07-20] MEDS ORDERED: INSULIN REGULAR, HUMAN 100 UNIT/ML VIAL SUBQ SCH (08:55)
[2021-07-20] MEDS ORDERED: LANTUS SC (09:02)
[2021-07-20] MEDS ORDERED: NOVR SUBQ (09:04)
[2021-07-20 09:07] LABS: RBC,URINE 0-5 /HPF (0-5); WBC,URINE 0-5 /HPF (0-5)
--- NOTE | 2021-07-20 10:31 | NUR ---
Patient discharged with v/s stable. Written and verbal after care instructions given and explained. Patient alert, oriented and verbalized understanding of instructions. Ambulatory with BROTHER to car. All questions addressed prior to discharge. ID band removed. Patient advised to follow up with PMD. Rx of INSULIN GLARGINE, INSULIN HUMAN REGULAR (SENT) given. Patient educated on indication of medication including possible reaction and side effects. Opportunity to ask questions provided and answered.
[2021-07-20 10:32] VITALS: BP 150/83
== END 2021-07-20 10:32 | disposition home or self-care (01) ==
LOC: MED 06:40
DX: E11.65 Type 2 diabetes mellitus with hyperglycemia (principal); M79.672 Pain in left foot; Z79.4 Long term (current) use of insulin; Z79.899 Other long term (current) drug therapy; Z79.2 Long term (current) use of antibiotics; Z79.1 Long term (current) use of non-steroidal anti-inflammatories (NSAID); Z88.1 Allergy status to other antibiotic agents
CPT/HCPCS: 36415; 73650; 80053; 81001; 82803; 85025; 86140; 96361; 96372; 96374; 99284; J1885; J7030; Q0092